=== PATIENT | female | born 1970 | race Caucasian/White ===

== ENCOUNTER 2016-06-04 07:39 | Emergency (ER) ==
[2016-06-04] MEDS ORDERED: ASPIRIN PO STA (07:43)
[2016-06-04] MEDS ORDERED: NITROGLYCERIN SL PRN (07:43)
[2016-06-04 08:10] LABS: MANUAL DIFF NEEDED? NO
[2016-06-04 08:19] LABS: BASO% 0.3 % (0.0-0.8); EOS# 0.04 X1000 (0.0-0.7); EOS% 0.7 % (0.0-10.0); HEMATOCRIT 35.9 % (37.0-47.0); HEMOGLOBIN 11.3 g/dL (12.0-16.0); LYMPH# 1.14 X1000 (1.2-3.4); LYMPH% 18.8 % (20.5-51.1); MCH 26.3 PG (27-31); MCHC 31.5 g/dL (33-37); MCV 83.5 FL (81-99); MONO# 0.56 X1000 (0.11-0.59); MONO% 9.3 % (1.7-9.3); MPV 10.3 FL (7.4-10.4); NEUT% 70.9 % (42.2-75.2); PLT 234 X1000 (130-400)
[2016-06-04 08:35] LABS: CALCIUM 9.6 mg/dL (8.8-10.2); MAGNESIUM 2.1 mg/dL (1.5-2.7); POTASSIUM 4.4 mmol/L (3.5-5.1); TOTAL BILIRUBIN 0.31 mg/dL (0.20-1.00); TOTAL PROTEIN 7.4 g/dL (6.3-8.3)
[2016-06-04] MEDS ORDERED: NS 1,000 ML IV ONE (08:37)
[2016-06-04] MEDS ORDERED: ZOFRAN IV ONE (08:37)
[2016-06-04] MEDS ORDERED: MORPHINE IV ONE (08:37)
[2016-06-04 09:01] LABS: INR 0.97; PROTIME 9.9 Seconds (9.2-11.7); PTT 24.7 Seconds (22.0-36.0)
--- NOTE | 2016-06-04 09:11 | PROVIDER DOCUMENTATION ---
HPI-Chest Pain <Janiya Villafuerte X - Last Filed: 06/04/16 09:37> - General Source: patient - History of Present Illness-CP Location: reports: other (bilateral chest) Chest Pain Radiation: reports: back, epigastric Quality of Pain: reports: aching Severity in ED: moderate Onset/Duration: 2 days ago Timing: still present Nitro Today/Relief: no nitro taken today Aspirin Treatment Today: 325 mg x 1, provided by ED Similar Symptoms Previously?: Yes Recently Seen Here or By Another Healthcare Provider: No <Ginny Carlson - Last Filed: 06/04/16 10:45> - General Chief Complaint: Chest Pain Stated Complaint: CPVOMITING,NAUSEA,LEFT ARM,NECK PAIN Time Seen by Provider: 06/04/16 07:50 Allergies/Adverse Reactions: Patient Allergies Allergy/AdvReac Type Severity Reaction Status Date / Time baclofen Allergy SHORTNESS Verified 06/04/16 07:53 OF BREATH Fish Containing Products Allergy Unknown Verified 06/04/16 07:53 ketorolac tromethamine * Allergy SHORTNESS Verified 06/04/16 07:53 [From Toradol] OF BREATH rofecoxib [From Vioxx] Allergy SHORTNESS Verified 06/04/16 07:53 OF BREATH Home Medications: Home Medication List Medication Instructions Recorded Confirmed Last Taken Type ATORVAstatin [Lipitor] 10 mg PO QHS 01/15/16 04/15/16 04/14/16 18:00 History Allopurinol [Zyloprim] 300 mg PO DAILY 01/15/16 04/15/16 04/15/16 06:30 History Amlodipine Besylate [Norvasc] 10 mg PO DAILY 01/15/16 04/15/16 04/15/16 06:30 History Aspirin [Low Dose Aspirin EC] 81 mg PO DAILY 01/15/16 04/15/16 04/15/16 06:30 History Gabapentin [Neurontin] 300 mg PO TID 01/15/16 04/15/16 04/15/16 06:30 History Hydralazine [Apresoline] 50 mg PO BID 01/15/16 04/15/16 04/15/16 06:30 History Levothyroxine [Synthroid] 175 microgm PO DAILY 01/15/16 04/15/16 04/15/16 06:30 History Paroxetine [Paxil] 20 mg PO DAILY 01/15/16 04/15/16 04/15/16 06:30 History Prazosin [Minipress] 1 mg PO QHS 01/15/16 04/15/16 04/15/16 06:30 History Metoprolol Succinate E.r. [Toprol 50 mg PO DAILY #30 tablet 01/19/16 04/15/16 06:30 Rx Xl] Pantoprazole [Protonix] 40 mg PO BID@0700,1900 #60 tablet 01/19/16 04/15/16 06:30 Rx Sennosides/Docusate Sodium 2 each PO BID #60 tablet 01/19/16 04/15/16 04/15/16 06:30 Rx [Pericolace] Sucralfate [Carafate] 1 gm PO BID #120 tablet 01/19/16 04/15/16 04/15/16 06:30 Rx Famotidine [Pepcid] 20 mg PO DAILY #20 tablet 04/12/16 04/15/16 04/15/16 06:30 Rx Ibuprofen [Motrin] 800 mg PO Q8H PRN PRN #20 tablet 04/12/16 04/15/16 Unknown Rx Benzonatate [Tessalon Perle] 100 mg PO TID PRN #30 capsule 04/15/16 Unknown Rx Cefdinir 300 mg PO BID #14 capsule 04/15/16 Unknown Rx - History of Present Illness-CP Nature of Presenting Problem: Presents to er with cc of bilateral chest pain radiating into the back and epigastric area x2 days ago. pt reports she goes to a pain clinic for chronic pain and has ran out of her pain medications 3 days ago. Pt has had a cardiac stent placed 1 year ago. (Ginny Carlson) Review of Systems - Adult - REVIEW OF SYSTEMS - ADULT Constitutional: denies: chills, fever, fatique Eyes: reports: no symptoms reported Ears, Nose, Mouth & Throat: reports: no symptoms reported Cardiovascular: reports: chest pain. denies: irregular heart rate, orthopnea, syncope Respiratory: denies: cough, shortness of breath, wheezing Gastrointestinal: denies: abdominal pain, diarrhea, nausea, vomiting Genitourinary: reports: no symptoms reported Musculoskeletal: reports: no symptoms reported Integumentary: reports: no symptoms reported Neurological: reports: no symptoms reported Psychiatric: reports: no symptoms reported Endocrine: reports: no symptoms reported Hematologic/Lymphatic: reports: no symptoms reported Allergic/Immunologic: reports: no symptoms reported All Other Systems: Reviewed and Negative <Ginny Carlson - Last Filed: 06/04/16 10:45> Past History - Adult - PAST MEDICAL HISTORY-ADULT Review of Records: reports: Nursing Assessment Review, Medications Reviewed Major Childhood Illnesses: reports: denies history Cardiovascular: reports: CAD (has stent), HTN Respiratory: reports: asthma Gastrointestinal: reports: other (esophagitis) Obstetrical/Gynecological: reports: denies history Genitourinary: reports: denies history Musculoskeletal: reports: arthritis Neurological: reports: headaches/migraines Endocrine/Immune: reports: Diabetes Other Conditions: reports: denies history - PRIOR SURGERIES/PROCEDURES Surgical/Procedure History: reports: appendectomy, hysterectomy, - IMMUNIZATION STATUS Childhood Immunizations: See Nurse Assessment Flu Vaccine: See Nurse Assessment - FAMILY HISTORY Family History: reviewed, not pertinent - SOCIAL HISTORY Smoking: denies Substance Use: none/never <Ginny Carlson - Last Filed: 06/04/16 10:45> Physical Exam-General - PHYSICAL EXAM-ADULT Initial Vital Signs Reviewed: Yes - CONSTITUTIONAL General Appearance: appears well, alert, no apparent distress - EYES Eyes: PERRL/EOMI - HEAD, EARS, NOSE, MOUTH & THROAT HENMT: moist mucous membranes, normal ENT inspection, TMs normal, pharynx normal - NECK Neck: non-tender, full range of motion, supple, normal inspection - RESPIRATORY Respiratory: chest non-tender, lungs clear, normal breath sounds, no pleuratic chest pain, no respiratory distress, no accessory muscle use - CARDIOVASCULAR Cardiovascular: regular rate, rhythm - GASTROINTESTINAL (ABDOMEN) Abdominal Exam: normal bowel sounds, soft, no organomegaly, no pulsatile mass, tenderness (ttp epigastric) - MUSCULOSKELETAL Extremity: normal range of motion, non-tender - SKIN Integumentary: normal color, normal turgor, warm/dry - NEUROLOGIC Neurologic: grossly normal - PSYCHIATRIC Psych/Mental Status: normal mood/affect, normal thought content, normal thought process, oriented x 3 <Ginny Carlson - Last Filed: 06/04/16 10:45> Progress - EKG 1 Comments: T wave inversations - no change compared to old EKG <Janiya Villafuerte - Last Filed: 06/04/16 09:37> - EKG 1 Time of EKG reading by physician:: 07:47 EKG Read and Signed by:: Janiya Villafuerte EKG Interpretation (*Must complete 3 of following elements*): Abnormal (ST and T wave abnormality consider inferior ischemia; ST and T wave abnormality consider anterolateral ischemia) Rate: 79 Rhythm: nsr [place]: normal QRS: normal 2 Time of EKG reading by physician:: 09:51 EKG Read and Signed by:: Janiya Villafuerte EKG Interpretation (*Must complete 3 of following elements*): Abnormal (ST and T wave abnormality consider inferior ischemia; ST and T wave abnormality consider anterior ischemia) Rate: 53 Rhythm: sinus jessica [place]: normal QRS: normal Prior EKG Comparison: unchanged from prior - XRAY 1 XRAY: Bilateral XRAY Study: Chest Impression: Normal XRAY Interpretation: nad - ULTRASOUND (By Radiology) 1 US Study: Abdomen Impression: Abnormal (hepatic steatosis. right renal atrophy and probable chronic pyelonephritis or vascular disease. The appearance of right kidney has not changed since 01/18/16) <Ginny Carlson - Last Filed: 06/04/16 10:45> - PLAN OF CARE/RESULTS Progress/Plan/Lab Results: Orders Category Date Time Status Cardiac Monitoring DIRECTED Care 06/04/16 07:43 Active Saline Loc NOW Care 06/04/16 07:43 Active CHEST-2 VIEWS [RAD] Stat Exams 06/04/16 07:43 Taken US GB < RUQ (LIMITED) [US] Stat Exams 06/04/16 08:36 Ordered AMYLASE [CHEM] Stat Lab 06/04/16 07:52 Received CBC WITH ELECTRONIC DIFF [HEME] Stat Lab 06/04/16 07:52 Completed CK PROFILE [SP CHEM] Stat Lab 06/04/16 07:52 Completed COMPREHENSIVE METABOLIC PANEL [CHEM] Stat Lab 06/04/16 07:52 Completed D-DIMER [CHEM] Stat Lab 06/04/16 07:52 Completed LIPASE [CHEM] Stat Lab 06/04/16 07:52 Received MAGNESIUM [CHEM] Stat Lab 06/04/16 07:52 Completed PRO B-NATRIURETIC PEPTIDE Stat Lab 06/04/16 07:52 Completed PROTIME WITH INR [COAG] Stat Lab 06/04/16 07:52 Completed PTT [COAG] Stat Lab 06/04/16 07:52 Completed TROPONIN T Stat Lab 06/04/16 07:52 Completed 0.9% Sodium Chloride Inj [Ns] 1,000 ml Med 06/04/16 08:37 Active IV 999 mls/hr Aspirin Med 06/04/16 07:43 Discontinued 325 mg PO STAT STA Morphine Med 06/04/16 08:37 Discontinued 4 mg IV NOW ONE Nitroglycerin Sl [Nitroglycerin] Med 06/04/16 07:43 Active 0.4 mg SL Q5M PRN PRN Ondansetron [Zofran] Med 06/04/16 08:37 Discontinued 4 mg IV NOW ONE EKG [EKG] Stat Ther 06/04/16 07:43 Ordered Vital Signs - 24 hr 06/04/16 07:44 Temperature 97.9 F Pulse Rate 88 Respiratory 18 Rate Blood Pressure 153/114 O2 Sat by Pulse 98 Oximetry Laboratory Tests 06/04/16 06/04/16 06/04/16 07:52 07:52 07:52 WBC 6.05 RBC 4.30 Hgb 11.3 L Hct 35.9 L MCV 83.5 MCH 26.3 L MCHC 31.5 L RDW Std Deviation 14.4 Plt Count 234 MPV 10.3 Immature Gran % (Auto) 0.0 Neut % (Auto) 70.9 Lymph % (Auto) 18.8 L [place] % (Auto) 9.3 Eos % (Auto) 0.7 Baso % (Auto) 0.3 Immature Gran # (Auto) 0.00 Neut # (Auto) 4.29 Lymph # (Auto) 1.14 L [place] # (Auto) 0.56 Eos # (Auto) 0.04 Baso # (Auto) 0.02 PT INR PTT (Actin FS) D-Dimer 0.31 Sodium 140 Potassium 4.4 Chloride 103 Carbon Dioxide 21 L Anion Gap 16 BUN 21 Creatinine 1.3 H Estimated GFR/1.73 m2 45 BUN/Creatinine Ratio 16 Glucose 122 H Calculated Osmolality 284 Calcium 9.6 Magnesium 2.1 Total Bilirubin 0.31 AST 15 ALT 13 Alkaline Phosphatase 82 Creatine Kinase 44 Troponin T Xft-E-Pfginlpzkic Pept Total Protein 7.4 Albumin 4.0 Globulin 3.4 Albumin/Globulin Ratio 1.2 06/04/16 06/04/16 06/04/16 07:52 07:52 07:52 WBC RBC Hgb Hct MCV MCH MCHC RDW Std Deviation Plt Count MPV Immature Gran % (Auto) Neut % (Auto) Lymph % (Auto) [place] % (Auto) Eos % (Auto) Baso % (Auto) Immature Gran # (Auto) Neut # (Auto) Lymph # (Auto) [place] # (Auto) Eos # (Auto) Baso # (Auto) PT 9.9 INR 0.97 PTT (Actin FS) 24.7 D-Dimer Sodium Potassium Chloride Carbon Dioxide Anion Gap BUN Creatinine Estimated GFR/1.73 m2 BUN/Creatinine Ratio Glucose Calculated Osmolality Calcium Magnesium Total Bilirubin AST ALT Alkaline Phosphatase Creatine Kinase Troponin T < 0.010 Gie-W-Htrotumtbpc Pept 819 H Total Protein Albumin Globulin Albumin/Globulin Ratio Laboratory Tests 06/04/16 06/04/16 06/04/16 07:52 07:52 07:52 WBC 6.05 RBC 4.30 Hgb 11.3 L Hct 35.9 L MCV 83.5 MCH 26.3 L MCHC 31.5 L RDW Std Deviation 14.4 Plt Count 234 MPV 10.3 Immature Gran % (Auto) 0.0 Neut % (Auto) 70.9 Lymph % (Auto) 18.8 L [place] % (Auto) 9.3 Eos % (Auto) 0.7 Baso % (Auto) 0.3 Immature Gran # (Auto) 0.00 Neut # (Auto) 4.29 Lymph # (Auto) 1.14 L [place] # (Auto) 0.56 Eos # (Auto) 0.04 Baso # (Auto) 0.02 PT INR PTT (Actin FS) D-Dimer 0.31 Sodium 140 Potassium 4.4 Chloride 103 Carbon Dioxide 21 L Anion Gap 16 BUN 21 Creatinine 1.3 H Estimated GFR/1.73 m2 45 BUN/Creatinine Ratio 16 Glucose 122 H Calculated Osmolality 284 Calcium 9.6 Magnesium 2.1 Total Bilirubin 0.31 AST 15 ALT 13 Alkaline Phosphatase 82 Creatine Kinase 44 Troponin T Ebo-V-Zcffcpcgbuw Pept Total Protein 7.4 Albumin 4.0 Globulin 3.4 Albumin/Globulin Ratio 1.2 Amylase Lipase 06/04/16 06/04/16 06/04/16 07:52 07:52 07:52 WBC RBC Hgb Hct MCV MCH MCHC RDW Std Deviation Plt Count MPV Immature Gran % (Auto) Neut % (Auto) Lymph % (Auto) [place] % (Auto) Eos % (Auto) Baso % (Auto) Immature Gran # (Auto) Neut # (Auto) Lymph # (Auto) [place] # (Auto) Eos # (Auto) Baso # (Auto) PT 9.9 INR 0.97 PTT (Actin FS) 24.7 D-Dimer Sodium Potassium Chloride Carbon Dioxide Anion Gap BUN Creatinine Estimated GFR/1.73 m2 BUN/Creatinine Ratio Glucose Calculated Osmolality Calcium Magnesium Total Bilirubin AST ALT Alkaline Phosphatase Creatine Kinase Troponin T < 0.010 Xnv-W-Dmtmbohgtiu Pept 819 H Total Protein Albumin Globulin Albumin/Globulin Ratio Amylase Lipase 06/04/16 06/04/16 06/04/16 07:52 09:54 09:54 WBC RBC Hgb Hct MCV MCH MCHC RDW Std Deviation Plt Count MPV Immature Gran % (Auto) Neut % (Auto) Lymph % (Auto) [place] % (Auto) Eos % (Auto) Baso % (Auto) Immature Gran # (Auto) Neut # (Auto) Lymph # (Auto) [place] # (Auto) Eos # (Auto) Baso # (Auto) PT INR PTT (Actin FS) D-Dimer Sodium Potassium Chloride Carbon Dioxide Anion Gap BUN Creatinine Estimated GFR/1.73 m2 BUN/Creatinine Ratio Glucose Calculated Osmolality Calcium Magnesium Total Bilirubin AST ALT Alkaline Phosphatase Creatine Kinase 48 Troponin T < 0.010 Dzf-S-Npxoevppxlm Pept Total Protein Albumin Globulin Albumin/Globulin Ratio Amylase 51 Lipase 28 (Ginny Carlson) Departure <Janiya Villafuerte X - Last Filed: 06/04/16 09:37> - Departure Time of Disposition Order: 10:44 Certified Medical Emergency: Emergent <Ginny Carlson - Last Filed: 06/04/16 10:45> - Departure DIAGNOSIS: Chest pain Qualifiers: Chest pain type: unspecified Qualified Code(s): R07.9 - Chest pain, unspecified Disposition: HOME 01 Condition: Stable Additional Instructions: Follow up with pcp and labor union business representative ED Follow Up Instructions: You have been treated by a care provider in the Emergency Department. These instructions are being provided to you so you can have an understanding of how to care for yourself upon discharge. Upon discharge from the Emergency Department, you are responsible for making arrangements for follow-up care by a physician of your choice. Take all prescribed medications as directed. Return to the Emergency Department immediately for any new or worsening symptoms. You may call the Physician Referral phone number at [phone] to obtain a list of Physicians who are taking new patients. Referrals: Albertina Husain CRNP [Primary Care Provider] - Lucius Mack MD [STAFF PHYSICIAN] - Attestation - Scribe Verification/Attestation Scribe:: Ginny Carlson Acting as Scribe for:: Janiya Villafuerte Scribe documention review:: This chart was documented by a scribe and accurately reflects the service the provider performed and the decisions made by the provider. <Ginny Carlson - Last Filed: 06/04/16 10:45> Physician Attestation - Physician Attestation I, the provider, attest to the following statement:: Janiya Villafuerte Physician documentation Attestation:: This documentation recorded by the scribe accurately reflects the service I personally performed and the decisions made by me. <Ginny Carlson - Last Filed: 06/04/16 10:45>
[2016-06-04 09:15] LABS: AMYLASE 51 U/L (20-200); LIPASE 28 U/L (13-60)
--- NOTE | 2016-06-04 09:28 | Diag Imaging Result Document ---
PROCEDURE NAME: CHEST-2 VIEWS - 06/04/2016 TWO VIEWS OF THE CHEST: FINDINGS: The appearance of the chest has not changed significantly since 01/15/2016. IMPRESSION: No acute disease.
--- NOTE | 2016-06-04 10:15 | Diag Imaging Result Document ---
PROCEDURE NAME: US GB < RUQ (LIMITED) - 06/04/2016 RIGHT UPPER QUADRANT ULTRASOUND: FINDINGS: The visualized portions of the pancreas aorta and inferior vena cava are within normal limits. There is no evidence of biliary dilatation, the common bile duct measuring 4 mm. The liver is hyperechoic. The right kidney is somewhat atrophic in appearance with areas of cortical scarring. It measures 8.6 x 4.7 x 4.5 cm. There is no evidence of hydronephrosis, masses or stones. The gallbladder is clear and nontender. There is antegrade flow in the portal vein. IMPRESSION: Hepatic steatosis. Right renal atrophy and probable chronic pyelonephritis or vascular disease. The appearance of the right kidney has not changed since 01/18/2016.
[2016-06-04 10:26] VITALS: BP 169/97
--- NOTE | 2016-06-04 12:19 | EKG Report ---
Test Performed on : 06/04/2016 07:47:25 AM Test Reason : CP Blood Pressure : / mmHG Vent. Rate : 079 BPM Atrial Rate : 079 BPM P-R Int : 112 ms QRS Dur : 094 ms QT Int : 400 ms P-R-T Axes : -03 023 -50 degrees QTc Int : 458 ms Normal sinus rhythm. ST & T wave abnormality, consider inferior ischemia ST & T wave abnormality, consider anterolateral ischemia Abnormal ECG When compared with ECG of 09-MAR-2016 16:29, No significant change was found Unconfirmed Result
--- NOTE | 2016-06-05 05:39 | EKG Report ---
Test Performed on : 06/04/2016 09:51:15 AM Test Reason : NO Order in i-drive Blood Pressure : / mmHG Vent. Rate : 053 BPM Atrial Rate : 053 BPM P-R Int : 118 ms QRS Dur : 098 ms QT Int : 482 ms P-R-T Axes : -02 043 -48 degrees QTc Int : [address] & T wave abnormality, consider inferior ischemia ST & T wave abnormality, consider anterior ischemia Abnormal ECG When compared with ECG of 04-JUN-2016 07:47, (Unconfirmed) Vent. rate has decreased BY 26 BPM Unconfirmed Result
== END 2016-06-04 11:45 | disposition home or self-care (01) ==
LOC: ED 07:39
DX: R07.89 Other chest pain (principal); R94.31 Abnormal electrocardiogram [ECG] [EKG]; M54.9 Dorsalgia, unspecified; R10.13 Epigastric pain; R11.2 Nausea with vomiting, unspecified; M79.602 Pain in left arm; M54.2 Cervicalgia; R10.816 Epigastric abdominal tenderness; G89.29 Other chronic pain; I25.10 Atherosclerotic heart disease of native coronary artery without angina pectoris; I10 Essential (primary) hypertension; M19.90 Unspecified osteoarthritis, unspecified site; E11.9 Type 2 diabetes mellitus without complications; Z79.82 Long term (current) use of aspirin; Z79.899 Other long term (current) drug therapy; Z95.5 Presence of coronary angioplasty implant and graft
CPT/HCPCS: 71020; 76705; 80053; 82150; 82550; 83690; 83735; 83880; 84484; 85025; 85379; 85610; 85730; 93005; J2270; J2405; J7030

== ENCOUNTER 2016-06-09 11:57 | Emergency (ER) ==
[2016-06-09 12:25] VITALS: BP 195/116
--- NOTE | 2016-06-09 12:53 | PROVIDER DOCUMENTATION ---
HPI-Abdominal Pain/GI Problem - General Chief Complaint: Return/Recheck Stated Complaint: ABD PAIN Time Seen by Provider: 06/09/16 12:41 Source: patient Allergies/Adverse Reactions: Patient Allergies Allergy/AdvReac Type Severity Reaction Status Date / Time baclofen Allergy SHORTNESS Verified 06/04/16 07:53 OF BREATH Fish Containing Products Allergy Unknown Verified 06/04/16 07:53 ketorolac tromethamine * Allergy SHORTNESS Verified 06/04/16 07:53 [From Toradol] OF BREATH rofecoxib [From Vioxx] Allergy SHORTNESS Verified 06/04/16 07:53 OF BREATH Home Medications: Home Medication List Medication Instructions Recorded Confirmed Last Taken Type ATORVAstatin [Lipitor] 10 mg PO QHS 01/15/16 04/15/16 04/14/16 18:00 History Allopurinol [Zyloprim] 300 mg PO DAILY 01/15/16 04/15/16 04/15/16 06:30 History Amlodipine Besylate [Norvasc] 10 mg PO DAILY 01/15/16 04/15/16 04/15/16 06:30 History Aspirin [Low Dose Aspirin EC] 81 mg PO DAILY 01/15/16 04/15/16 04/15/16 06:30 History Gabapentin [Neurontin] 300 mg PO TID 01/15/16 04/15/16 04/15/16 06:30 History Hydralazine [Apresoline] 50 mg PO BID 01/15/16 04/15/16 04/15/16 06:30 History Levothyroxine [Synthroid] 175 microgm PO DAILY 01/15/16 04/15/16 04/15/16 06:30 History Paroxetine [Paxil] 20 mg PO DAILY 01/15/16 04/15/16 04/15/16 06:30 History Prazosin [Minipress] 1 mg PO QHS 01/15/16 04/15/16 04/15/16 06:30 History Metoprolol Succinate E.r. [Toprol 50 mg PO DAILY #30 tablet 01/19/16 04/15/16 06:30 Rx Xl] Pantoprazole [Protonix] 40 mg PO BID@0700,1900 #60 tablet 01/19/16 04/15/16 06:30 Rx Sennosides/Docusate Sodium 2 each PO BID #60 tablet 01/19/16 04/15/16 04/15/16 06:30 Rx [Pericolace] Sucralfate [Carafate] 1 gm PO BID #120 tablet 01/19/16 04/15/16 04/15/16 06:30 Rx Famotidine [Pepcid] 20 mg PO DAILY #20 tablet 04/12/16 04/15/16 04/15/16 06:30 Rx Ibuprofen [Motrin] 800 mg PO Q8H PRN PRN #20 tablet 04/12/16 04/15/16 Unknown Rx Benzonatate [Tessalon Perle] 100 mg PO TID PRN #30 capsule 04/15/16 Unknown Rx Cefdinir 300 mg PO BID #14 capsule 04/15/16 Unknown Rx Hydrocodone/APAP 5 mg/325 mg 1 each PO Q8H PRN PRN #10 tablet 06/04/16 Unknown Rx [[place]-5] - History of Present Illness-ABD Nature of Presenting Problems: Pt is 45 y/o F presents to the ED with abdominal pain. Pt states being seen at [facility] on the . Pt states pain has worsened. Pt denies N/V/D. Abdominal Pain Onset Location: reports: suprapubic Pain Radiation: reports: RLQ Quality of Pain: reports: aching Severity in ED: reports: mild Onset/Duration: reports: 5 days ago Timing: reports: still present, getting worse Activities at Onset: reports: light activity Exposure to sick contacts?: No Modifying Factors: improves with: nothing Associated Symptoms: reports: denies symptoms Last BM: unsure Dark Stools Present?: reports: none noticed Rectal Bleeding: reports: none Rectal Pain: reports: none Emesis Description: reports: none Bruising or Bleeding Gums?: No Similar Symptoms Previously?: Yes Recently seen or treated by another doctor?: No Review of Systems - Adult - REVIEW OF SYSTEMS - ADULT Constitutional: denies: chills, fever Eyes: denies: blurred vision, double vision Ears, Nose, Mouth & Throat: denies: ear pain, nose pain, throat pain Cardiovascular: denies: chest pain, heart murmur, irregular heart rate Respiratory: denies: cough, shortness of breath, wheezing Gastrointestinal: reports: abdominal pain. denies: diarrhea, nausea, vomiting Genitourinary: denies: dysuria, hematuria Musculoskeletal: denies: bone pain, joint pain, neck pain Integumentary: denies: hives, itching, rash Neurological: denies: dizziness/vertigo, headache/migraines Psychiatric: reports: no symptoms reported Endocrine: reports: no symptoms reported Hematologic/Lymphatic: reports: no symptoms reported Allergic/Immunologic: reports: no symptoms reported All Other Systems: Reviewed and Negative Past History - Adult - PAST MEDICAL HISTORY-ADULT Review of Records: reports: Nursing Assessment Review, Medications Reviewed, Social history reviewed & non-contributory. Major Childhood Illnesses: reports: denies history Cardiovascular: reports: CAD (has stent), CHF, HTN, hyperlipidemia Respiratory: reports: asthma Gastrointestinal: reports: other (esophagitis) Obstetrical/Gynecological: reports: uterine/ovarian cancer Genitourinary: reports: kidney disease Musculoskeletal: reports: arthritis, chronic pain Neurological: reports: headaches/migraines, Seizures/Epilepsy Endocrine/Immune: reports: Diabetes Other Conditions: reports: denies history - PRIOR SURGERIES/PROCEDURES Surgical/Procedure History: reports: appendectomy, cardiac stent, hysterectomy, , back/neck (back ) - IMMUNIZATION STATUS Childhood Immunizations: See Nurse Assessment Flu Vaccine: See Nurse Assessment - FAMILY HISTORY Family History: reviewed, not pertinent - SOCIAL HISTORY Smoking: denies Substance Use: denies Living Situation: family Physical Exam-General - PHYSICAL EXAM-ADULT Initial Vital Signs Reviewed: Yes - CONSTITUTIONAL General Appearance: appears well, alert, no apparent distress - EYES Eyes: PERRL/EOMI, pink conjunctivae, fundi clear, no AV nicking - HEAD, EARS, NOSE, MOUTH & THROAT HENMT: normocephalic/atraumatic, moist mucous membranes, normal ENT inspection, TMs normal, pharynx normal - NECK Neck: non-tender, full range of motion, supple, normal inspection - RESPIRATORY Respiratory: chest non-tender, lungs clear, normal breath sounds, no pleuratic chest pain, no respiratory distress, no accessory muscle use - CARDIOVASCULAR Cardiovascular: normal peripheral pulses, regular rate, rhythm, no edema, no gallop, no JVD, no murmur - GASTROINTESTINAL (ABDOMEN) Abdominal Exam: normal bowel sounds, soft, no organomegaly, no pulsatile mass, guarding, tenderness (suprapubic) - LYMPHATIC Lymphatic: no adenopathy - MUSCULOSKELETAL Back Exam: normal inspection, no CVA tenderness, no vertebral tenderness Extremity: normal range of motion, non-tender, normal gait, normal inspection, no pedal edema, no calf tenderness, normal capillary refill, pelvis stable - SKIN Integumentary: normal color, normal turgor, warm/dry - NEUROLOGIC Neurologic: grossly normal - PSYCHIATRIC Psych/Mental Status: normal mood/affect, oriented x 3 Progress - PLAN OF CARE/RESULTS Progress/Plan/Lab Results: Vital Signs - 24 hr 06/09/16 12:21 Pulse Rate 86 Respiratory 18 Rate Blood Pressure 195/116 Laboratory Tests 06/09/16 06/09/16 06/09/16 13:00 13:00 13:10 WBC 7.33 RBC 4.51 Hgb 12.0 Hct 37.6 MCV 83.4 MCH 26.6 L MCHC 31.9 L RDW Std Deviation 14.5 Plt Count 259 MPV 10.2 Immature Gran % (Auto) 0.1 Neut % (Auto) 71.9 Lymph % (Auto) 17.9 L Dyer % (Auto) 8.3 Eos % (Auto) 1.4 Baso % (Auto) 0.4 Immature Gran # (Auto) 0.01 Neut # (Auto) 5.27 Lymph # (Auto) 1.31 Dyer # (Auto) 0.61 H Eos # (Auto) 0.10 Baso # (Auto) 0.03 Sodium 137 Potassium 4.5 Chloride 104 Carbon Dioxide 20 L Anion Gap 13 BUN 19 Creatinine 1.3 H Estimated GFR/1.73 m2 45 BUN/Creatinine Ratio 15 Glucose 109 H Calculated Osmolality 277 Calcium 9.3 Total Bilirubin 0.20 AST 21 ALT 16 Alkaline Phosphatase 78 Total Protein 7.5 Albumin 4.2 Globulin 3.0 Albumin/Globulin Ratio 1.0 Urine Source CLEAN CATCH Urine Color YELLOW Urine Clarity CLEAR Urine pH 6.0 Ur Specific Reader 1.015 Urine Protein TRACE A Urine Ketones NEGATIVE Urine Blood NEGATIVE Urine Nitrite NEGATIVE Urine Bilirubin NEGATIVE Urine Urobilinogen NORMAL Urine Microscopic RBC Not Reportable Urine WBC TRACE A Urine Microscopic WBC <10 Ur Epithelial Cells >10 A Urine Yeast NONE SEEN Urine Glucose NEGATIVE Orders Category Date Time Status ABDOMEN/PELVIS W/CONTRAST [CT] Stat Exams 06/09/16 12:53 Taken CBC WITH ELECTRONIC DIFF [HEME] Stat Lab 06/09/16 13:00 Completed CMP [COMPREHENSIVE METABOLIC PANEL] [CHEM] Stat Lab 06/09/16 13:[address] W/POSS RFLX CULT [URINALYSIS] Stat Lab 06/09/16 13:10 Completed - CT/MRI 1 CT Study: Abdomen, Pelvis Impression: Normal CT Results: no acute disease Departure - Departure Time of Disposition Order: 15:13 DIAGNOSIS: Muscular abdominal pain in right lower quadrant Disposition: HOME 01 Certified Medical Emergency: Emergent Condition: Stable Additional Instructions: ED Follow Up Instructions: You have been treated by a care provider in the Emergency Department. These instructions are being provided to you so you can have an understanding of how to care for yourself upon discharge. Upon discharge from the Emergency Department, you are responsible for making arrangements for follow-up care by a physician of your choice. Take all prescribed medications as directed. Return to the Emergency Department immediately for any new or worsening symptoms. You may call the Physician Referral phone number at [phone] to obtain a list of Physicians who are taking new patients. Attestation - Scribe Verification/Attestation Scribe:: Carmita Vazquez Acting as Scribe for:: Jonas Hahn Scribe documention review:: This chart was documented by a scribe and accurately reflects the service the provider performed and the decisions made by the provider.
[2016-06-09 13:07] LABS: MANUAL DIFF NEEDED? NO
[2016-06-09 13:09] LABS: BASO% 0.4 % (0.0-0.8); EOS% 1.4 % (0.0-10.0); HEMATOCRIT 37.6 % (37.0-47.0); IMM GRAN# 0.01 X1000 (0.0-0.04); IMM GRAN% 0.1 % (0.0-0.5); LYMPH# 1.31 X1000 (1.2-3.4); LYMPH% 17.9 % (20.5-51.1); MCH 26.6 PG (27-31); MCHC 31.9 g/dL (33-37); MCV 83.4 FL (81-99); MONO# 0.61 X1000 (0.11-0.59); MONO% 8.3 % (1.7-9.3); MPV 10.2 FL (7.4-10.4); NEUT% 71.9 % (42.2-75.2); PLT 259 X1000 (130-400); RBC 4.51 XMIL (4.2-5.4)
[2016-06-09 13:20] LABS: URINE CULTURE PL NEEDED? NO; URINE SOURCE CLEAN CATCH
[2016-06-09 13:26] LABS: BILIRUBIN URINE NEGATIVE (NEGATIVE); BLOOD URINE NEGATIVE (NEGATIVE); CLARITY CLEAR (CLEAR); COLOR YELLOW; GLUCOSE URINE NEGATIVE (NEGATIVE); LEUKOCYTES URINE TRACE (NEGATIVE); NITRITE URINE NEGATIVE (NEGATIVE); PROTEIN URINE TRACE mg/dL (NEGATIVE); SP GRAVITY URINE 1.015; UROBILINOGEN URINE NORMAL
[2016-06-09 13:30] LABS: ALBUMIN 4.2 g/dL (3.5-5.0); CALCIUM 9.3 mg/dL (8.8-10.2); POTASSIUM 4.5 mmol/L (3.5-5.1); TOTAL BILIRUBIN 0.2 mg/dL (0.20-1.00); TOTAL PROTEIN 7.5 g/dL (6.3-8.3)
[2016-06-09 13:38] LABS: URINE EPITHELIAL CELLS >10 /HPF (<10); URINE WBC <10 /HPF (<10)
[2016-06-09] MEDS ORDERED: NS 1,000 ML IV ONE (14:14)
[2016-06-09] MEDS ORDERED: DILAUDID IV ONE (14:14)
--- NOTE | 2016-06-09 14:24 | Diag Imaging Result Document ---
PROCEDURE NAME: ABDOMEN/PELVIS W/CONTRAST - 06/09/2016 CT ABDOMEN PELVIS WITH INTRAVENOUS CONTRAST: A CT dose reduction protocol was used. COMPARISON: Renal ultrasound 01/18/2016, [id number] ultrasound 2016. FINDINGS: The lung bases are clear. Heart size is mildly enlarged. There is significant left renal atrophy. The left kidney measures 6.7 x 3.7 cm, which has atrophied since 01/18/2016. The liver, gallbladder, spleen, pancreas, and adrenals are normal. No bowel obstruction or inflammation. Uterus and ovaries are absent. Urinary bladder and rectum are normal. There is anterior and posterior fusion of the lower lumbar spine. There is significant degeneration of the sacroiliac joints. No acute bony lesions. IMPRESSION: 1. Progressive left renal atrophy. 2. No acute findings. [facility]
== END 2016-06-09 15:27 | disposition home or self-care (01) ==
LOC: P.ED 11:57
DX: R10.31 Right lower quadrant pain (principal); I25.10 Atherosclerotic heart disease of native coronary artery without angina pectoris; I10 Essential (primary) hypertension; E78.5 Hyperlipidemia, unspecified; Z95.5 Presence of coronary angioplasty implant and graft; M19.90 Unspecified osteoarthritis, unspecified site; G89.29 Other chronic pain; R51 Headache; R56.9 Unspecified convulsions; E11.9 Type 2 diabetes mellitus without complications; Z79.899 Other long term (current) drug therapy; Z79.82 Long term (current) use of aspirin
CPT/HCPCS: 74177; 80053; 81001; 85025; 96361; 96374; J1170; J7030; Q9967

== ENCOUNTER 2018-12-11 12:34 | Inpatient (IN) ==
[2018-12-11] MEDS ORDERED: DILAUDID IV ONE ×2 (12:56→16:32)
[2018-12-11] MEDS ORDERED: ZOFRAN IV ONE (12:57)
[2018-12-11] MEDS ORDERED: NS 1,000 ML IV ONE (12:59)
[2018-12-11 13:43] LABS: HEMATOCRIT 39.7 % (37.0-47.0); HEMOGLOBIN 12.7 g/dL (12.0-16.0); LYMPH% 15.4 % (20.5-51.1); MCH 27.1 PG (27-31); MCV 84.8 FL (81-99); MONO% 7.8 % (1.7-9.3); NEUT% 76.2 % (42.2-75.2); PLT 335 X1000 (130-400); RBC 4.68 XMIL (4.2-5.4); WBC 11.98 X1000 (4.8-10.8)
[2018-12-11 13:44] LABS: BASO# 0.02 X1000 (0.0-0.2); BASO% 0.2 % (0.0-0.8); EOS# 0.01 X1000 (0.0-0.7); EOS% 0.1 % (0.0-10.0); IMM GRAN# 0.03 X1000 (0.0-0.04); IMM GRAN% 0.3 % (0.0-0.5); LYMPH# 1.85 X1000 (1.2-3.4); MONO# 0.93 X1000 (0.11-0.59); NEUT# 9.14 X1000 (1.4-6.5)
--- NOTE | 2018-12-11 13:46 | PROVIDER DOCUMENTATION ---
This chart was entered by Belgica Leigh Scribe, acting as scribe for Rajiv Costa MD. HPI-General Adult - General Chief Complaint: Chest Pain Stated Complaint: ABD PAIN,FEVER,VOMITING,NEAR SYNCOPE Time Seen by Provider: 12/11/18 12:43 Source: patient Allergies/Adverse Reactions: Patient Allergies Allergy/AdvReac Type Severity Reaction Status Date / Time baclofen Allergy SHORTNESS Verified 12/11/18 14:03 OF BREATH Fish Containing Products Allergy Unknown Verified 12/11/18 14:03 ketorolac tromethamine * Allergy SHORTNESS Verified 12/11/18 14:03 [From Toradol] OF BREATH rofecoxib [From Vioxx] Allergy SHORTNESS Verified 12/11/18 14:03 OF BREATH Home Medications: Home Medication List Medication Instructions Recorded Confirmed Last Taken Type Aspirin [Low Dose Aspirin EC] 81 mg PO DAILY 01/15/16 12/11/18 11/25/18 History Gabapentin [Neurontin] 300 mg PO TID 01/15/16 12/11/18 11/25/18 History Pantoprazole [Protonix] 40 mg PO BID@0700,1900 #60 tablet 01/19/16 12/11/18 11/24/18 Rx Levothyroxine [Synthroid] 200 microgm PO DAILY@0700 #0 tablet 02/28/17 12/11/18 11/25/18 Rx Hydralazine [Apresoline] 50 mg PO TID #90 tab 11/04/17 12/11/18 11/25/18 Rx Polyethylene Glycol 3350 [Miralax] 17 gm PO BID PRN 12/21/17 12/11/18 Unknown History Allopurinol 100 mg PO BID #60 tab 10/19/18 12/11/18 11/25/18 Rx Clonidine HCl 0.1 mg PO TID 11/25/18 12/11/18 11/25/18 History Oxycodone/APAP 10 mg/325 mg 1 ea PO Q4H PRN PRN 11/25/18 12/11/18 11/25/18 History [Percocet-10] Quetiapine Fumarate 50 mg PO QHS 11/25/18 12/11/18 11/24/18 History - History of Present Illness -Gen Adult Nature of Presenting Problems: 48 y/o female presents to ED with intermittent, sharp chest pain, N/V, abdominal pain, fever, and chills onset 4 days ago. Pt hypertensive in triage. Pt states she has not taken her meds today because she cannot keep anything down. Pt is alert and oriented. Location of Pain/Injury: reports: chest, abdomen Pain Radiation: reports: no radiation Quality of Pain: reports: sharp Severity: reports: moderate Onset/Duration: reports: 4 days ago Timing: reports: still present, intermittent Context/Activities at Onset: reports: none Modifying Factors: worse with: palpation Associated Symptoms: reports: chest pain, fever/chills, nausea, vomiting, other (abdominal pain) Similar Symptoms Previously?: No Recently seen or treated by another doctor?: No Review of Systems - Adult - REVIEW OF SYSTEMS - ADULT Constitutional: reports: chills, fever Eyes: reports: no symptoms reported Ears, Nose, Mouth & Throat: reports: no symptoms reported Cardiovascular: reports: chest pain. denies: palpitations Respiratory: denies: cough, shortness of breath Gastrointestinal: reports: abdominal pain, nausea, vomiting. denies: diarrhea Genitourinary: reports: no symptoms reported Musculoskeletal: denies: back pain, joint pain Integumentary: reports: no symptoms reported Neurological: denies: dizziness/vertigo, seizure Psychiatric: reports: no symptoms reported Endocrine: reports: no symptoms reported Hematologic/Lymphatic: reports: no symptoms reported Allergic/Immunologic: reports: no symptoms reported All Other Systems: Reviewed and Negative Past History - Adult - PAST MEDICAL HISTORY-ADULT Review of Records: reports: Old Records Reviewed, Nursing Assessment Review, Medications Reviewed Major Childhood Illnesses: reports: denies history Cardiovascular: reports: CAD (has stent), CHF, HTN, hyperlipidemia, [place] Respiratory: reports: asthma Gastrointestinal: reports: GERD, other (esophagitis) Obstetrical/Gynecological: reports: uterine/ovarian cancer Genitourinary: reports: kidney disease Musculoskeletal: reports: arthritis, chronic pain, other (Gout) Neurological: reports: headaches/migraines, Seizures/Epilepsy Psychiatric: reports: anxiety, bipolar, depression, other (insomnia) Endocrine/Immune: reports: Diabetes, thyroid disorder Other Conditions: reports: denies history - PRIOR SURGERIES/PROCEDURES Surgical/Procedure History: reports: appendectomy, cardiac stent, hysterectomy, , orthopedic (extremity) (carpal tunnel), joint replacement (knee), back/neck (back ) - IMMUNIZATION STATUS Childhood Immunizations: See Nurse Assessment Flu Vaccine: See Nurse Assessment - FAMILY HISTORY Family History: reviewed, not pertinent - SOCIAL HISTORY Smoking: quit greater than 1 year Substance Use: none/never Alcohol Use Frequency: never Living Situation: family Physical Exam-General - PHYSICAL EXAM-ADULT Initial Vital Signs Reviewed: Yes (bp 204/146) - CONSTITUTIONAL General Appearance: appears well, alert, no apparent distress - EYES Eyes: PERRL/EOMI, pink conjunctivae - HEAD, EARS, NOSE, MOUTH & THROAT HENMT: normocephalic/atraumatic, moist mucous membranes, normal ENT inspection - NECK Neck: non-tender, full range of motion - RESPIRATORY Respiratory: lungs clear, normal breath sounds, other (chest wall tenderness) - CARDIOVASCULAR Cardiovascular: normal peripheral pulses, regular rate, rhythm - MUSCULOSKELETAL Back Exam: normal inspection, no CVA tenderness, no vertebral tenderness Extremity: normal range of motion, non-tender - SKIN Integumentary: normal color, warm/dry - NEUROLOGIC Neurologic: grossly normal - PSYCHIATRIC Psych/Mental Status: normal mood/affect, normal thought content, normal thought process, oriented x 3 Progress - PLAN OF CARE/RESULTS Progress/Plan/Lab Results: Vital Signs - 8 hr 12/11/18 12:37 Temperature 97.5 F L Pulse Rate 106 H Respiratory Rate 20 Blood Pressure 205/124 O2 Sat by Pulse Oximetry 100 HEART SCORE OF 4. Laboratory Tests 12/11/18 12/11/18 12/11/18 13:29 13:29 13:29 WBC 11.98 H RBC 4.68 Hgb 12.7 Hct 39.7 MCV 84.8 MCH 27.1 MCHC 32.0 L RDW Std Deviation 15.0 H Plt Count 335 MPV 10.0 Immature Gran % (Auto) 0.3 Neut % (Auto) 76.2 H Lymph % (Auto) 15.4 L Mccone % (Auto) 7.8 Eos % (Auto) 0.1 Baso % (Auto) 0.2 Immature Gran # (Auto) 0.03 Neut # (Auto) 9.14 H Lymph # (Auto) 1.85 Mccone # (Auto) 0.93 H Eos # (Auto) 0.01 Baso # (Auto) 0.02 Sodium 142 Potassium 4.3 Chloride 103 Carbon Dioxide 22 L Anion Gap 17 BUN 27 H Creatinine 1.7 H Estimated GFR/1.73 m2 32 BUN/Creatinine Ratio 16 Glucose 127 H Calculated Osmolality 290 Calcium 9.7 Magnesium 2.2 Total Bilirubin 0.38 AST 16 ALT 17 Alkaline Phosphatase 79 Troponin T < 0.010 Total Protein 8.2 Albumin 4.7 Globulin 3.5 Albumin/Globulin Ratio 1.3 Amylase 70 Lipase 85 H Urine Source Urine Color Urine Turbidity Urine pH Ur Specific Vinson Urine Protein Ur Glucose (Stick) Ur Ketones (Stick) Urine Blood Urine Nitrite Urine Bilirubin Urobilinogen Dipstick Urine Leukocytes Urine WBC (Auto) Urine RBC (Auto) U Epithel Cells (Auto) Urine Bacteria (Auto) 12/11/18 13:51 WBC RBC Hgb Hct MCV MCH MCHC RDW Std Deviation Plt Count MPV Immature Gran % (Auto) Neut % (Auto) Lymph % (Auto) Mccone % (Auto) Eos % (Auto) Baso % (Auto) Immature Gran # (Auto) Neut # (Auto) Lymph # (Auto) Mccone # (Auto) Eos # (Auto) Baso # (Auto) Sodium Potassium Chloride Carbon Dioxide Anion Gap BUN Creatinine Estimated GFR/1.73 m2 BUN/Creatinine Ratio Glucose Calculated Osmolality Calcium Magnesium Total Bilirubin AST ALT Alkaline Phosphatase Troponin T Total Protein Albumin Globulin Albumin/Globulin Ratio Amylase Lipase Urine Source CLEAN CATCH Urine Color YELLOW Urine Turbidity CLEAR Urine pH 8.0 Ur Specific Vinson 1.016 Urine Protein TRACE A Ur Glucose (Stick) NEGATIVE Ur Ketones (Stick) NEGATIVE Urine Blood NEGATIVE Urine Nitrite NEGATIVE Urine Bilirubin NEGATIVE Urobilinogen Dipstick NORMAL Urine Leukocytes NEGATIVE Urine WBC (Auto) <10 Urine RBC (Auto) <10 U Epithel Cells (Auto) <10 Urine Bacteria (Auto) NEGATIVE Result Diagrams: 12/11/18 13:29 12/11/18 13:29 - EKG 1 Time of EKG reading by physician:: 12:48 EKG Read and Signed by:: Rajiv Costa EKG Interpretation (*Must complete 3 of following elements*): Abnormal Rate: 98 Rhythm: NSR [place]: normal QRS: normal [place] Interval: normal ST Wave: non-specific ST changes (consider inferior/anterolateral ischemia) Prior EKG Comparison: changes noted (ST changes more prominent in lateral leads from 11/04/18. -Dr. Costa) - XRAY 1 XRAY Study: Chest Impression: See EMR Report ([facility] - [address], [address], [place] [address] [facility] - [address] , [place] [address] Department of Imaging Patient: MELISSA BENITEZ Date: 12/11/18MR#: [id number] : 1970ADM Status: REG ERAcct#: [id number] Age/Sex: 48/FRoom/Bed: Loc: ED Ordering Physician: Rajiv Costa MD Family Physician: None,PCP Reason for Procedure: fever, chest pain Signed EXAM: CHEST-1 VIEW INDICATION: fever, chest pain TECHNIQUE: One view COMPARISON: 11/04/2018 FINDINGS: The lungs are grossly clear. There is no discrete pleural fluid collection or pneumothorax. The cardiomediastinal silhouette and central vasculature are grossly unremarkable. IMPRESSION: No evidence of acute pathology by plain radiograph. Electronically signed by Wicho Heart 12/11/2018 2:15 PM 12/11/[id number] Interpreting Physician: Wicho Heart MD Dictated Date/Time: 12/11/18 1415 cc: Rajiv Costa MD; None,PCP) - CONSULTS/PCP/HOSPITALIST Notification #1 *Consult/PCP/Hospitalist*: BRY Farmer for hospitalist Time Discussed: 17:43 Consult Disposition: Admit Departure - Departure Date of Disposition Decision: 12/11/18 Time of Disposition Decision: 17:07 DIAGNOSIS: Hypertensive urgency Intractable vomiting Qualifiers: Vomiting type: unspecified Nausea presence: with nausea Qualified Code(s): R11.2 - Nausea with vomiting, unspecified Disposition: ADMITTED INPATIENT 09 Certified Medical Emergency: Emergent Condition: Stable Additional Freetext Instructions: ED Follow Up Instructions: You have been treated by a care provider in the Emergency Department. These instructions are being provided to you so you can have an understanding of how to care for yourself upon discharge. Upon discharge from the Emergency Department, you are responsible for making arrangements for follow-up care by a physician of your choice. Take all prescribed medications as directed. Return to the Emergency Department immediately for any new or worsening symptoms. You may call the Physician Referral phone number at [phone] to obtain a list of Physicians who are taking new patients. Referrals and Follow-Ups: None,PCP [Primary Care Provider] - - Critical Care Note This patient required my direct & personal management of CC.: No Attestation - Physician/ BERRY Attestation Patient care was provided by Advanced Practice Provider:: No The physician spent face to face time with patient:: Yes Advanced Practice Provider documentation review:: Supervising physician onsite and consulted in the evaluation and care of this patient. The physician did have a face to face encounter with the patient. This chart was documented by the indicated scribe, (Belgica Leigh, Catherine) and accurately reflects the services I performed and decisions made by me, Rajiv Costa MD, as attested by the provider's signature.
[2018-12-11 13:59] LABS: URINE SOURCE CLEAN CATCH
[2018-12-11 14:09] LABS: BILIRUBIN URINE NEGATIVE (NEGATIVE); BLOOD URINE NEGATIVE (NEGATIVE); COLOR YELLOW; GLUCOSE URINE NEGATIVE (NEGATIVE); KETONE URINE NEGATIVE (NEGATIVE); LEUKOCYTES URINE NEGATIVE (NEGATIVE); NITRITE URINE NEGATIVE (NEGATIVE); PROTEIN URINE TRACE mg/dL (NEGATIVE); SP GRAVITY URINE 1.016; TURBIDITY URINE CLEAR (CLEAR); UROBILINOGEN URINE NORMAL (NORMAL)
[2018-12-11 14:10] LABS: UR EPITHELIAL CELLS <10 /HPF (<10); URINE BACTERIA NEGATIVE /HPF; URINE RBC <10 /HPF (<10); URINE WBC <10 /HPF (<10)
--- NOTE | 2018-12-11 14:17 | Diag Imaging Result Doc PS360 ---
EXAM: CHEST-1 VIEW INDICATION: fever, chest pain TECHNIQUE: One view COMPARISON: 11/04/2018 FINDINGS: The lungs are grossly clear. There is no discrete pleural fluid collection or pneumothorax. The cardiomediastinal silhouette and central vasculature are grossly unremarkable. IMPRESSION: No evidence of acute pathology by plain radiograph. Electronically signed by Wicho Heart 12/11/2018 2:15 PM
[2018-12-11] MEDS ORDERED: LABETALOL IV ONE (14:18)
[2018-12-11] MEDS ORDERED: APRESOLINE IV ONE ×2 (14:18→16:34)
[2018-12-11 14:23] LABS: ALB/GLOB RATIO 1.3; ALBUMIN 4.7 g/dL (3.5-5.0); CALCIUM 9.7 mg/dL (8.8-10.2); CREATININE 1.7 mg/dL (0.5-0.9); MAGNESIUM 2.2 mg/dL (1.5-2.7); POTASSIUM 4.3 mmol/L (3.5-5.1); TOTAL BILIRUBIN 0.38 mg/dL (0.20-1.00); TOTAL PROTEIN 8.2 g/dL (6.3-8.3)
[2018-12-11] MEDS ORDERED: CATAPRES PO ONE (16:34)
[2018-12-11] MEDS ORDERED: NITROGLYCERIN SL PRN (19:15)
[2018-12-11] MEDS ORDERED: MIRALAX PO PRN (19:15)
[2018-12-11] MEDS: ZOFRAN IV PRN (20:12)
[2018-12-11] MEDS: CARDENE 20 MG/NS 20 MG/200 ML PIGGYBACK IV SCH (20:42)
[2018-12-11 20:54] LABS: CHOLESTEROL 314 mg/dL (0-200); HDL 73 mg/dL (45-65); LDL 217 mg/dL; TRIGLYCERIDES 119 mg/dL (35-135); VLDL 24 mg/dL
[2018-12-11] MEDS: LOVENOX SUBQ SCH (21:22)
[2018-12-11] MEDS: ZYLOPRIM PO SCH (21:36)
[2018-12-11] MEDS: SEROQUEL PO SCH (21:36)
[2018-12-11] MEDS: PRILOSEC PO SCH (21:36)
[2018-12-11] MEDS: PERCOCET-10 PO PRN (21:37)
--- NOTE | 2018-12-11 22:07 | HISTORY AND PHYSICAL ---
CHIEF COMPLAINT: Nausea, vomiting, fevers, chills, diaphoresis. HISTORY OF PRESENT ILLNESS: Ms. Mayer is a 48-year-old female. She comes to the ER today with complaints of nausea and vomiting, fever and chills. This started after she had a trigger point therapy surgery on 12/07/2018. She stated that she did call the surgeon that did the procedure. He stated that this is quite common after the procedure, and if it did not get any better, that he would see her. She stated it did get somewhat better after the 1st day; however, the next day it continued to persist. She has not been able to take any of her pain medications. She has not been able to hold down any of her blood pressure medications. The patient decided to come to the ER today because she is having pain all over and into her chest. While in the room, she is vomiting persistently. Her blood pressure on the monitor is 265/122. When looking at the records in the ER, she has had several medications in the ER including labetalol, hydralazine, and clonidine. However, her blood pressure has persisted to climb higher and higher after all 3 medications. The patient was given Dilaudid in the ER, and she is not complaining of any pain at this time; however, she still is still vomiting, and her blood pressure is still very high. The color of her vomit is a liquid brown. It does not appear to be bloody or black or tarry. The patient states that she does not have blood in her stools. The patient does state she has been feverish and diaphoretic. She has also had chills. She does not complain of anything with her urine. On laboratory findings, studies of the urine are negative. White blood cell count in the ER is slightly elevated at 11.98. The patient does have an elevated creatinine in the ER of 1.7. When I look back at the prior records, the patient has been having elevated creatinine levels, her last being 2.0 on 11/04/2018. PAST MEDICAL HISTORY: 1. Coronary artery disease. 2. Chronic back pain. 3. Type 2 diabetes. 4. Gout. 5. Hyperlipidemia. 6. Chronic kidney disease stage 3. 7. History of esophageal strictures. 8. Hypothyroidism. 9. Chronic anemia. 10. Gastroesophageal reflux disease. PAST SURGICAL HISTORY: 1. Two sections. 2. Two lower back surgeries. 3. Four carpal tunnel releases. 4. Coronary artery stent placement in 2016. 5. Esophagogastroduodenoscopy with esophageal dilation. 6. Appendectomy. 7. Hysterectomy. SOCIAL HISTORY: The patient denies any alcohol, tobacco, or illicit drug use. She is disabled for her back pain. She has 2 children. She lives with her in an apartment above the garage of her in-laws. FAMILY HISTORY: Her father is from cirrhosis of the liver and liver cancer. Mother is from cervical cancer. ALLERGIES: Baclofen, fish-containing products, Toradol and Vioxx. HOME MEDICATIONS: Neurontin 300 mg p.o. t.i.d., aspirin 81 mg p.o. daily, Protonix 40 mg p.o. b.i.d., Synthroid 200 mcg p.o. daily, hydralazine 50 mg p.o. t.i.d., MiraLAX 17 g p.o. b.i.d., allopurinol 100 mg p.o. b.i.d., Seroquel 50 mg p.o. at bedtime, clonidine 0.1 mg p.o. t.i.d., Percocet 10, 1 tablet p.o. every 4 hours p.r.n. LABS AND DIAGNOSTICS: Sodium 142, potassium 4.3, chloride 103, carbon dioxide 22, anion gap 17, BUN 27, creatinine 1.7, estimated GFR is 32, glucose 127, calcium 9.7, magnesium 2.2, AST 16, ALT 17, alkaline phosphatase 79. Troponin less than 0.01. Amylase 70, lipase 85. White blood cell count 11.98, hemoglobin 12.7, hematocrit 39.7. Urinalysis is negative. Chest x-ray shows no evidence of acute pathology. REVIEW OF SYSTEMS: A 10-point review of system has been obtained. All are negative except what is stated above in HPI. PHYSICAL EXAMINATION: VITAL SIGNS: Temperature 97.5 degrees, pulse rate 86, respiratory rate 19, blood pressure is 210/122, O2 saturation 99% on room air. Height 5 feet 9 inches, weight 223 pounds. GENERAL: This is a 48-year-old female. She is well nourished, well developed. She is in somewhat acute distress, lying in the ER stretcher, sitting up in the bed vomiting. HEENT: Atraumatic, normocephalic. Pupils equal, round, reactive to light. Sclerae are icteric. Mucous membranes are dry. NECK: Supple supple with no lymphadenopathy. Trachea is midline. No JVD. No thyromegaly. No bruits. CARDIOVASCULAR: Regular rate and rhythm. No murmurs, gallops, or rubs appreciated. RESPIRATORY: Lung sounds are clear with equal chest excursion. Respirations are nonlabored with no accessory muscle usage. GASTROINTESTINAL: Abdomen is soft and tender. It is nondistended with bowel sounds present x4. NEUROLOGIC: Cranial nerves II-XII are intact. The patient is awake, alert, oriented. MUSCULOSKELETAL: Full distal strength noted. No abnormalities of gait. No deformities. EXTREMITIES: No clubbing, no cyanosis, no edema. DP and PT pulses are present and palpable. SKIN: Warm, dry, and intact. No rashes or bruises. No diaphoresis. ASSESSMENT AND PLAN: 1. Hypertension emergency. We will admit this patient to the ICU unit and place her on a Cardene drip to obtain a systolic blood pressure less than 180. The patient has been given several medications for her blood pressure in the ER. None of these medications have seemed to help her blood pressure. In fact, her blood pressures seemed to increase. The patient is still vomiting despite given being give several medications for nausea and vomiting. This could be a result from her hypertension. We will try to get her blood pressure down and see if this helps her vomiting. 2. Chest pain. The patient does have chronic pain. She has not been able to take any of her pain medication. She was given Dilaudid in the ER. She is not complaining of any chest pain at this time. She does not have any EKG changes. However, she is having some hypertension emergency. We are going to start her on the Cardene drip. We will do some repeat lab work in the morning and follow up on this. 3. Nausea, vomiting, diarrhea. Patient does have extremely high blood pressure. She is also not able to take her chronic pain medication. This is likely what has been causing her to have all this nausea, vomiting, and diarrhea. We are going to get her on a good pain control schedule and get her blood pressure under control and start her on some Zofran, and hopefully, this will resolve this. 4. Coronary artery disease. The patient has had 2 stents placed in the past. We are going to see if we can control her blood pressure. The patient has not followed up with a fisher pot. We are going to order an echocardiogram. 5. Diabetes mellitus. We are going to be checking her blood sugar and providing sliding scale insulin. 6. Hypothyroidism. We are going to reorder her Synthroid. 7. Gout. The patient is on medication for this at home. We are going to restart this. 8. Gastroesophageal reflux disease. We are going to restart her home gastroesophageal reflux disease medications. We will admit this patient to the intensive care unit. We are going to start her on a Cardene drip and try to control her blood pressure and see if this helps with her nausea and vomiting. We are going to also control her pain and restart several home medications. We are going to do an echocardiogram. Repeat labs in the morning, and hopefully, all of this will resolve her nausea, vomiting, diarrhea. All other labs and treatment pending hospital course. Dictated by BRY Goldstein for Magan Vance MD cc: Magan Vance MD MTDD
--- NOTE | 2018-12-12 04:38 | EKG Report ---
Test Performed on : 12/11/2018 12:48:05 PM Test Reason : chest pain Blood Pressure : / mmHG Vent. Rate : 098 BPM Atrial Rate : 098 BPM P-R Int : 136 ms QRS Dur : 082 ms QT Int : 352 ms P-R-T Axes : 087 024 -80 degrees QTc Int : 449 ms Normal sinus rhythm. ST & T wave abnormality, consider inferior ischemia ST & T wave abnormality, consider anterolateral ischemia Abnormal ECG When compared with ECG of 04-NOV-2018 20:39, (Unconfirmed) Vent. rate has increased BY [address] now depressed in Anterior leads T wave inversion now evident in Lateral leads Unconfirmed Result
[2018-12-12 04:56] LABS: HEMOGLOBIN 11.8 g/dL (12.0-16.0); RBC 4.28 XMIL (4.2-5.4); WBC 9.35 X1000 (4.8-10.8)
[2018-12-12 04:57] LABS: HEMATOCRIT 37.6 % (37.0-47.0); MCH 27.6 PG (27-31); MCHC 31.4 g/dL (33-37); MCV 87.9 FL (81-99); RDW 15.4 % (11.5-14.5)
[2018-12-12 05:42] LABS: CALCIUM 8.9 mg/dL (8.8-10.2); CREATININE 1.6 mg/dL (0.5-0.9); POTASSIUM 4.5 mmol/L (3.5-5.1)
[2018-12-12] MEDS ORDERED: SYNTHROID PO SCH (07:00)
[2018-12-12] MEDS: CARDENE 20 MG/NS 20 MG/200 ML PIGGYBACK IV SCH (07:48)
[2018-12-12] MEDS: PRILOSEC PO SCH (08:04)
[2018-12-12] MEDS: NEURONTIN PO SCH ×3 (08:05→16:12)
[2018-12-12] MEDS: ZYLOPRIM PO SCH ×2 (08:05→20:50)
[2018-12-12] MEDS: LOPRESSOR PO SCH ×2 (08:05→20:50)
[2018-12-12] MEDS: APRESOLINE PO SCH ×3 (08:05→16:13)
[2018-12-12] MEDS: ASPIRIN EC PO SCH (08:05)
--- NOTE | 2018-12-12 08:51 | PROGRESS NOTE ---
DATE: 12/12/2018 SUBJECTIVE: The patient reports still complaining of chest pain on and off that is substernal, like a pressure, but it is definitely much better in comparing with yesterday. As per nursing staff, Cardene drip has been stopped at around 1 a.m., but has been restarted, and now her blood pressure started getting higher again. OBJECTIVE: Vital Signs: Temperature 99.8 degrees, heart rate 108, respiratory rate 12, blood pressure 166/105, O2 saturation 95% on room air. General: This is a 48-year-old female, lying in bed in no acute distress. Cardiovascular: S1, S2 heard. No murmurs, gallops, or rubs. Regular rate and rhythm. Respiratory: Clear bilaterally to auscultation. No work of breathing or using accessory muscles. Abdomen: Soft. Nontender to palpation. Bowel sounds present. No organomegaly. Extremities: No clubbing, cyanosis, or edema. Peripheral pulses present in both legs. Neurological: The patient is alert and oriented x3. Moves all 4 extremities. LABORATORY DATA: CBC is normal. BMP shows creatinine 1.6, with glucose 126. A1c 6.0. Cholesterol is 314, with HDL 73. TSH 25.46. ASSESSMENT AND PLAN: 1. Hypertensive emergency. At admission, the patient was complaining of chest pain. Last blood pressure was in the range of 240s and 230s. The patient has been admitted to the unit, and Cardene drip has been started. Now, blood pressure is between 160 and 170, and we are going to restart her home medications. Will monitor this patient closely. If blood pressures is higher than 180, will start Cardene drip. 2. Chest pain. The patient has a history of coronary artery disease. We have checked troponins 3 times, and those has been negative. Echocardiogram has been done and is pending. Cardiology has been consulted as well. 3. Intractable nausea and vomiting. The patient reports feeling better, so we are going to start a clear liquid diet, and will advance diet as tolerated. 4. Hypothyroidism. TSH is 25, so I think at this point, we are going to increase his doses of levothyroxine to 250 mcg by mouth daily. 5. Diabetes mellitus type 2. According to the patient, it is diet controlled. A1c of 6.0. This is definitely well-controlled. At this point, will place her on sliding scale insulin. 6. Gout. Will continue home medications. 7. Gastroesophageal disease. Will continue with Protonix. 8. Disposition. Will continue to monitor this patient closely because the blood pressure is not well controlled yet. I have started her on beta-ramone because of her elevated blood pressure and tachycardia. Cardene drip is running at low doses. Will continue to monitor. cc: Magan Vance MD MTDD
[2018-12-12] MEDS: LIPITOR PO SCH (08:52)
[2018-12-12] MEDS ORDERED: APRESOLINE PO SCH (09:00)
[2018-12-12] MEDS ORDERED: CATAPRES PO SCH (09:00)
[2018-12-12] MEDS: PERCOCET-10 PO PRN ×2 (14:43→20:50)
--- NOTE | 2018-12-12 15:45 | ECHO REPORT ---
ORDER DATE: 12/11/2018 INTERPRETING PHYSICIAN: Dr. Everette Swanson ECHOCARDIOGRAPHIC MEASUREMENTS: 1. Interventricular septum: 1.3 cm. 2. left ventricular posterior wall: 1.3 cm. 3. Diastolic diameter: 5.2 cm. 4. Left ventricular systolic diameter: 3.8 cm. 5. Left atrium: 3.7 cm. 6. Aorta 3.0 cm. SUMMARY OF THE 2-DIMENSIONAL IMAGIN. Aortic valve leaflets are trileaflet. 2. Pulmonic valve was normal. 3. Tricuspid valve was normal. 4. Mitral valve was normal. 5. Tricuspid valve was normal. 6. There is a mild mitral regurgitation. 7. Mild tricuspid regurgitation. 8. Peak velocity across the tricuspid valve less than 2 meters per second. 9. Peak velocity across the aortic valve is 2 meters per second. 10. Normal left ventricular cavity size. 11. Estimated ejection fraction of 60 to 65%. 12. There is mild left ventricular hypertrophy. 13. There is no pericardial effusion or obvious intracardiac mass or thrombus seen. 14. Anterior echo-free space suggestive of pericardial fat pad noted. cc: MD Magan Hernandez MD
[2018-12-12] MEDS: ZOFRAN IV PRN (17:13)
[2018-12-12] MEDS: LOVENOX SUBQ SCH (18:39)
--- NOTE | 2018-12-12 19:26 | CARDIOLOGY CONSULTATION ---
DATE: 12/12/2018 Cardiology was consulted for accelerated hypertension, chest pain. Ms. Mayer is a 48-year-old lady with history of hypertension and coronary artery disease, comes to the ER with nausea and vomiting. She also had a trigger-point surgery on 12/07/2018. She came to the emergency room, was noted to have a blood pressure of 265/122. She has been having episodes of blood pressure which fluctuated, going up to 200s when she measured her blood pressure at home. She says she has been taking her medications. She also has had intermittent episodes of chest discomfort associated with the elevated blood pressure. The patient at the time of my examination was pain free. She was started on a Cardene drip which has been discontinued, and medications have been adjusted. At the time of my examination, patient does not complain of any chest pain. She does not smoke. Does not drink. She is disabled secondary to her back pain. PAST MEDICAL HISTORY: 1. Coronary artery disease, status post stent placement 4 to 5 years back. 2. Chronic back pain. 3. Diabetes. 4. Gout. 5. Hyperlipidemias. 6. Renal insufficiency. 7. History of esophageal strictures. 8. Hypothyroidism. 9. Back surgery. 10. Carpal tunnel surgery. 11. Stent placement in 2016. 12. Esophagogastroduodenoscopy with esophageal dilatation in the past. 13. Appendectomy. 14. Hysterectomy. The patient's father is from cirrhosis. Mother is disease from cervical cancer. ALLERGIES: She is allergic to baclofen, fish-containing products, Vioxx, Toradol. HOME MEDICATIONS: Neurontin 300 mg p.o. t.i.d. Aspirin 81 mg a day. Protonix 40. Synthroid 200. Hydralazine 50 t.i.d. Clonidine 0.1 mg p.o. t.i.d. Allopurinol. Seroquel. PHYSICAL EXAMINATION: On examination, blood pressure was 160/80. First and second heart sounds were heard. There was no S3 gallop.Respiratory System: Normal air entry. There is no crepitations or rhonchi. Abdomen was soft, nontender. There was no guarding or rigidity. Bowel sounds were heard. Central nervous system: Alert and oriented. Was moving all 4 extremities. Examination of extremities revealed no pedal edema. HEENT: Atraumatic, normocephalic. Pupils were equal and reacting to light. ASSESSMENT AND PLAN: Ms Renee Mayer is a 48-year-old lady with history of hypertension, diabetes, coronary artery disease, uncontrolled hypertension, who comes with complaints of having chest pain and nausea and vomiting. Was noted to have a blood pressure of 265/122. She was started on a Cardene drip which has been discontinued, and p.o. medications have been adjusted. PLAN: 1. Hypertensive emergency. Her clonidine has been discontinued. She has been started on hydralazine and beta-blockers at 50 mg twice daily. Hydralazine has been increased to 75 mg p.o. t.i.d. I will add Hyzaar 50/12.5, to her medical regimen. In addition, get a renal duplex to rule out renal artery stenosis. 2. Her echocardiogram was done. Please see detailed echocardiogram report. 3. Hyperlipidemias. Continue with Lipitor 80 mg a day. 4. She has had coronary artery disease and stent placement in the past. As cardiac enzymes were unremarkable, I will set her up to undergo a Lexiscan Cardiolite stress test to assess for and rule out ischemia. 5. She has chronic pain and is on gabapentin. I have not made any changes. 6. Chest x-ray was unremarkable. Thank you for the consult. We will follow hospital course. cc: Everette Swanson MD
[2018-12-12] MEDS: SEROQUEL PO SCH (20:50)
[2018-12-13] MEDS: SYNTHROID PO SCH (06:15)
[2018-12-13 06:22] LABS: HEMOGLOBIN 10.8 g/dL (12.0-16.0); MCH 27.3 PG (27-31); MCV 90.9 FL (81-99); MPV 10.3 FL (7.4-10.4); RBC 3.96 XMIL (4.2-5.4); RDW 15.8 % (11.5-14.5); WBC 9.29 X1000 (4.8-10.8)
[2018-12-13 06:49] LABS: CALCIUM 8.3 mg/dL (8.8-10.2); POTASSIUM 4.5 mmol/L (3.5-5.1)
[2018-12-13] MEDS: LOPRESSOR PO SCH ×2 (08:03→21:04)
[2018-12-13] MEDS: APRESOLINE PO SCH ×3 (08:03→17:32)
[2018-12-13] MEDS ORDERED: HYZAAR 50/12.5 MG PO SCH (09:00)
[2018-12-13] MEDS ORDERED: AMINOPHYLLINE ONE (09:10)
[2018-12-13] MEDS: ZYLOPRIM PO SCH ×2 (09:34→21:05)
[2018-12-13] MEDS: ASPIRIN EC PO SCH (09:34)
[2018-12-13] MEDS: LIPITOR PO SCH (09:34)
[2018-12-13] MEDS: PRILOSEC PO SCH (09:34)
[2018-12-13] MEDS: NEURONTIN PO SCH ×3 (09:34→17:32)
--- NOTE | 2018-12-13 10:31 | PROGRESS NOTE ---
DATE: 12/12/2018 SUBJECTIVE: Patient reports no more episodes of chest pain. The patient has not been on any Cardene drip during the last 24 hours. Apparently, high readings that machine was catching once we repositioned the blood pressure cuff. Blood pressure has been in the last 12 hours 130's to 140's. OBJECTIVE: Vital Signs: Temperature 97.8 degrees, heart rate 63, respiratory rate 12, blood pressure 127/80 and O2 saturation 97% on room air. General: This is a 48-year-old female lying in bed in no acute distress. Cardiovascular: S1 and S2 heard. No murmurs, gallops, or rubs. Regular rate and rhythm. Respiratory: Clear bilaterally to auscultation. No work of breathing or using accessory muscles. Abdomen: Soft. Nontender to palpation. Bowel sounds present. No organomegaly. Extremities: No clubbing, cyanosis, or edema. Peripheral pulses present in both legs. Neurological: Patient is oriented x3. Moves all 4 extremities. LABORATORY DATA: White cell count 9.29, hemoglobin 10.8, hematocrit 36, and platelets 277,000 with creatinine 2.0, and glucose 125. ASSESSMENT AND PLAN: 1. Hypertensive emergency. Patient has been off of Cardizem drip for the last 24 hours. Patient has been started on hydralazine 75 mg p.o. three times per day plus metoprolol 50 mg p.o. b.i.d. Cardiology has seen this patient, and has added Hyzaar 50/12.5 1 tablet p.o. daily. At this point, that condition is resolved. Blood pressure is under control. 2. Coronary artery disease/chest pain. The patient is not complaining of any chest pain any more. Patient evaluated by Cardiology. They decided to order Lexiscan Cardiolite stress test to evaluate, and rule out ischemia. We will see what that exam shows. 3. Intractable nausea and vomiting. That condition is resolved. Patient was started on clear liquids, and will advance as tolerated. 4. Hypothyroidism. We have increased the dose of levothyroxine from 200 to 250 mcg p.o. daily. We will check TSH later. 5. Diabetes mellitus type 2. That is well controlled, diet controlled actually. Her hemoglobin A1c 6.0. I think we will continue with current management. 6. Gout. We will continue home medications. 7. Gastroesophageal reflux disease. We will continue Protonix. 8. Disposition. I think this patient is much more stable. I think we can transfer her to a regular room. We will continue to monitor this patient closely. We will place this patient on telemetry. cc: Magan Vance MD
[2018-12-13] MEDS: ZOFRAN IV PRN (10:57)
--- NOTE | 2018-12-13 11:14 | Diag Imaging Result Doc PS360 ---
EXAM: US DUPLEX RENAL ARTY/VEIN LMTD HISTORY: acc htn TECHNIQUE: Renal arterial Doppler ultrasound COMPARISON: None. FINDINGS: The right kidney measures 4.8 x 10.0 cm. Normal echotexture and cortical thickness. Segmental arterial pressures obtained. The right renal artery ratio 0.78. The resistive index is 0.69. The left kidney is small measuring only 5.4 x 2.6 x 2.5 cm. Increased renal echotexture with cortical thinning. Very little blood flow identified. IMPRESSION: Normal right kidney. Atrophic left kidney. Electronically signed by Sam Figueroa 12/13/2018 11:12 AM
[2018-12-13] MEDS: PERCOCET-10 PO PRN ×2 (13:16→21:04)
[2018-12-13] MEDS ORDERED: NORVASC PO SCH (14:00)
--- NOTE | 2018-12-13 14:14 | Diag Imaging Result Document ---
PROCEDURE NAME: MYOCARDIAL PERF SCAN, STR/REST - 12/13/2018 PROCEDURE PERFORMED: Lexiscan Cardiolite stress. DESCRIPTION OF PROCEDURE: Lexiscan was infused per standard protocol. Baseline electrocardiogram revealed normal sinus rhythm with nonspecific ST-T changes with T-wave inversions in the anterior and inferior leads. Stress electrocardiogram was nondiagnostic. Patient had chest discomfort during Lexiscan infusions, requiring aminophylline 125 mg given for chest pain and nausea. Cardiolite was injected. There were 15.2 mCi of Cardiolite injected for the rest phase and 42.9 mCi of Cardiolite injected for the rest phase. Gated SPECT images were obtained in standard views. Images revealed significant diaphragmatic attenuation and, in addition, chest wall attenuation. Normal left ventricular cavity size. There is a low-grade, fixed defect in the left ventricular apex with normal wall motion. This is likely to represent attenuation defect. Low probability of scar. There is no evidence of ischemia. Left ventricular ejection fraction by gated SPECT was 61%. CONCLUSIONS: 1. Patient had chest discomfort during Lexiscan infusion, nondiagnostic. 2. Nondiagnostic stress electrocardiogram given baseline ST-T changes. 3. Myocardial perfusion images revealed no evidence of ischemia. 4. There is a low-grade, fixed defect in the left ventricular apex with significant breast attenuation. This is likely to represent attenuation defect. Low probability of scar. 5. Left ventricular ejection fraction by gated SPECT was 61%. cc: Everette Swanson MD
[2018-12-13] MEDS: SEROQUEL PO SCH (21:05)
[2018-12-13] MEDS: NORVASC PO SCH (21:05)
[2018-12-13] MEDS: LOVENOX SUBQ SCH (21:05)
[2018-12-13 22:28] LABS: UR CREAT RANDOM 44.8 mg/dL (11-20)
[2018-12-13 22:31] LABS: UR PROT RANDOM 4.8 mg/dL
--- NOTE | 2018-12-13 22:36 | NEPHROLOGY CONSULTATION ---
DATE: 12/13/2018 REASON FOR ADMISSION: Nausea, vomiting, fever, chills, associated with diaphoresis . TIME SEEN: 1615 CONSULTING PHYSICIAN: Dr. Alvarez. REASON FOR CONSULT: CKD. HISTORY OF PRESENT ILLNESS: Ms. Mayer is a 48-year-old white female who presented to [facility] Emergency Department for nausea and vomiting associated with fever and chills for approximately 2 to 3 days before her admission. She stated that she had recently had a trigger point therapy surgery on 12/07/2018 had reported that she was nauseated with fever and chills, she had stated that this had not improved that she was to go to the local emergency department. This continued to persist. Pain medications and blood pressure medications had been unable to stay down. Upon admission to the emergency room, it was found her blood pressure to be 265/122. She had several medications including labetalol, hydralazine and clonidine in the emergency room, blood pressure continued to climb after these 3 medications, she was given Dilaudid in the ER. She continued with vomiting and elevated blood pressure. Subsequently she was admitted to ICU for blood pressure control and monitoring. In the ER it was also noted that her white count was elevated to 11.98 with a creatinine of 1.7. Last creatinine noted at 2.0. The patient states she has known 1 solitary kidney in the past diagnosed approximately 2 years ago in [place], [place]. She had not had any followup. She currently denies any chest pain. No increased work of breathing. No fever or chills. States that her blood pressure has been improving as long as she stays relaxed. She does have some pain to her right wrist. PAST MEDICAL HISTORY: Coronary artery disease, chronic back pain, type 2 diabetes, gout, hyperlipidemia, chronic kidney disease stage 3 baseline creatinine 1.7 to 2, known solitary kidney for greater than 2 to 3 years, history of esophageal strictures, hypothyroidism, chronic anemia, gastroesophageal reflux disease. PAST SURGICAL HISTORY: Two sections, 2 lower back surgeries, 4 carpal tunnel releases, coronary artery stent placement 2016, esophagogastroduodenoscopy with esophageal dilatation, appendectomy, hysterectomy. SOCIAL HISTORY: Patient is , she is disabled because of her back. She has 2 children with 1 son currently living in her home. She lives with her in an apartment above a garage of her in-laws. She denies any tobacco, alcohol or illicit drug use. She does attend a Pain Clinic for her back pain. FAMILY HISTORY: Father is from cirrhosis of the liver and liver cancer. Mother is from cervical cancer. CURRENT ALLERGIES: Listed as baclofen, fish containing products, Toradol and Vioxx. She has been instructed to avoid nonsteroidal anti-inflammatories. HOME MEDICATIONS: Neurontin, aspirin, Protonix, Synthroid, hydralazine, MiraLAX, allopurinol, Seroquel, clonidine, Percocet. REVIEW OF SYSTEMS: Negative for chest pain, negative for increased work of breathing, negative for fever or chills, negative for lower extremity swelling. Positive for right wrist hand pain, she is currently eating, negative for nausea, vomiting or any recent diarrhea since admission. Denies headaches. Patient's most recent vital signs at the time she was seen last temperature 98.6 degrees, blood pressure 158/97, heart rate 71, respirations 22, she is on room air, last recorded saturation is 99%, she has had 1615 in, 1150 out to void. LABS: Sodium is 142, potassium 4.5, chloride 108, CO2 20, BUN 38, creatinine 2, glucose 125, her anion gap is 14, calcium of 8.3. White count 9.29, hemoglobin 10.8, hematocrit 36, platelet count 277,000. Negative troponins on admission. TSH 25.46. Hypercholesterolemia. Triglycerides 119, cholesterol 314, LDL 217, HDL is 73, amylase 70, lipase 85, AST 16, ALT 17. Patient has had an aorta renal ultrasound with renal artery vein limited study completed today. Findings indicate the right kidney measuring 4.8 x 10, left kidney measuring 5.4 x 2.6, resistive index on the right is 0.69. The impression indicates normal right kidney with atrophic left, patient has known atrophic kidney. We have requested that Radiology evaluate the findings on this study for clarification of the findings. PHYSICAL EXAMINATION: This is a 48-year-old white female resting quietly in bed, head of the bed is elevated, she is currently eating her dinner. She denies chest pain, increased work of breathing. Skin is warm and dry. Patient has fair dentition.Neck: Supple. Trachea midline. No evidence of JVD in the upright position. Cardiovascular: She is regular rate and rhythm. No murmur or gallop appreciated. Lungs: Clear to auscultation bilateral. Equal excursion on room air. Abdomen: Soft, positive bowel sounds. Slight tenderness on palpation. Genitourinary: Not inspected. Patient has adequate urine out noted . Extremities: Have no edema. Right hand is slightly tender. Integumentary: Skin is warm and dry. No rashes or lesions. Neurological: She is alert and oriented x3. ASSESSMENT AND PLAN: 1. Acute kidney injury on chronic kidney disease, patient's baseline creatinine appears to be 1.7. Creatinine is at 2. She has had adequate urine output. US with normal right kidney. Absent left. We will reevaluate labs in the a.m. 2. Hypertensive emergency. The patient has been treated currently with amlodipine 5 mg b.i.d., nicardipine drip which is currently off, hydralazine 100 mg p.o. t.i.d., Lopressor 50 mg p.o. b.i.d., followed by the primary care. 3. Electrolytes and acid-base balance. These are acceptable. 4. Anemia. This is low but stable. 5. Elevated TSH. Patient has been started on levothyroxine 250 mcg 1 p.o. daily followed by the primary care. 6. Nausea and vomiting. This has resolved during her hospital stay. Like to thank you for allowing us to follow with this patient. Dictated by BRY Roger for Varghese Contreras MD cc: BRY Roger MD [facility]
[2018-12-14 05:52] LABS: HEMATOCRIT 38.1 % (37.0-47.0); HEMOGLOBIN 11.9 g/dL (12.0-16.0); MCH 27.5 PG (27-31); MCHC 31.2 g/dL (33-37); MPV 10.6 FL (7.4-10.4); RBC 4.33 XMIL (4.2-5.4); RDW 15.6 % (11.5-14.5); WBC 10.2 X1000 (4.8-10.8)
[2018-12-14 06:08] LABS: CALCIUM 8.6 mg/dL (8.8-10.2)
[2018-12-14 06:09] LABS: ALBUMIN 4.1 g/dL (3.5-5.0); CALCIUM 8.7 mg/dL (8.8-10.2); CREATININE 1.9 mg/dL (0.5-0.9); PHOSPHORUS 4.3 mg/dL (2.7-4.5); POTASSIUM 4.1 mmol/L (3.5-5.1)
[2018-12-14] MEDS: SYNTHROID PO SCH (06:35)
[2018-12-14] MEDS: PERCOCET-10 PO PRN ×2 (08:35→19:59)
[2018-12-14] MEDS: LOPRESSOR PO SCH ×2 (08:35→19:59)
[2018-12-14] MEDS: ASPIRIN EC PO SCH (08:35)
[2018-12-14] MEDS: NEURONTIN PO SCH ×3 (08:35→16:19)
[2018-12-14] MEDS: LIPITOR PO SCH (08:36)
[2018-12-14] MEDS: ZYLOPRIM PO SCH ×2 (08:36→19:59)
[2018-12-14] MEDS: APRESOLINE PO SCH ×3 (08:36→16:19)
[2018-12-14] MEDS: NORVASC PO SCH ×2 (08:36→19:59)
[2018-12-14] MEDS: PRILOSEC PO SCH (08:36)
--- NOTE | 2018-12-14 12:49 | PROGRESS NOTE ---
DATE: 12/14/2018 SUBJECTIVE: The patient has no major complaints except she describes kidney pain and she feels lack of energy and just very tired. Nurse reports that she dropped her saturations overnight a little bit with some apneic periods. OBJECTIVE: Vital signs: Blood pressure is 126/75, heart rate 71, respiratory rate of 20, temperature 98.4 degrees, 97% on room air. Cardiovascular: Regular rate and rhythm. Pulmonary: Bilateral breath sounds clear to auscultation. Gastrointestinal: Soft, nontender, nondistended. Bowel sounds are positive. Extremities: No clubbing or cyanosis. Lymphatics: No peripheral edema. LABORATORY DATA: Creatinine is at 1.9 which is close to baseline. BUN of 45. Sugars are pretty well controlled. Hemoglobin and hematocrit 11 and 38, white count of 10. PROBLEM LIST: 1. Hypertensive emergency, malignant hypertension. She is stable. She is off a Cardene drip. I do not think she was on Cardizem. She is on hydralazine. She is on Lopressor. She had been on Hyzaar but I do not know she is on that now; I think she is on Hyzaar right now. Right now, she is on hydralazine, metoprolol and amlodipine. May need to add minoxidil. 2. Diabetes. Appears to be well controlled. Her A1c is only 6. She seems to be doing okay from that standpoint. 3. History of coronary artery disease, chest pain. Her Lexiscan is negative. I believe low probability of ischemic changes. Her aortorenal ultrasound is really unremarkable. 4. Hypothyroidism. Her TSH was elevated and her Synthroid dose was adjusted. 5. Chronic renal failure. She is stage IIIB, or IV it looks like. She seems to be doing okay. Nephrology is following. 6. History of gout. We will continue her medications. DISPOSITION: I think she is stable. I am going to transfer her to [facility] and we will continue to monitor, work on trying to get her up and around, follow closely. cc: Hilton Bruce MD [facility]
[2018-12-14] MEDS ORDERED: APRESOLINE IV PRN (14:07)
[2018-12-14] MEDS: LOVENOX SUBQ SCH (19:59)
[2018-12-14] MEDS: SEROQUEL PO SCH (19:59)
--- NOTE | 2018-12-14 21:38 | NEPHROLOGY PROGRESS NOTE ---
DATE: 12/14/2018 TIME SEEN: 0700. SUBJECTIVE: Ms. Mayer is resting quietly in bed. States that she has had a good night. Her blood pressure is being controlled. No complaints of headache, chest pain, or increased work of breathing. OBJECTIVE: Vital Signs: Temperature 98.7 degrees, blood pressure 100/73, heart rate 90, respirations 14. She is on room air. Last recorded saturation 93%. She has had 840 in, 1550 out to void. LABS: Sodium 141, potassium 4.1, chloride 104, CO2 22, BUN 45, creatinine 1.9, glucose is 118. Anion gap is 16, calcium 8.6, phosphorus 4.3, albumin 4.1. White count 10.2, hemoglobin 11.9, hematocrit 38.1, platelet count 297,000. Her TSH is 25.46 yesterday. Her FENa score is 4.08%. Ultrasound shows atrophic left kidney with the right measuring at 10. PHYSICAL EXAMINATION: General: This is a 48-year-old white female. She is resting quietly in bed. She appears chronically ill, though in no acute distress. Skin: Warm and dry. No rashes or lesions. HEENT: Normocephalic, atraumatic. Conjunctiva is pale. She has RISA. Mucous membranes are dry. Neck: Supple. Trachea midline. No evidence of JVD. Cardiovascular: She is regular rate and rhythm. No murmur or gallop appreciated. Slightly tachycardic during our interview. Lungs: Clear to auscultation bilaterally. Equal excursion on room air. Abdomen: Soft, nontender. Positive bowel sounds. Genitourinary: Not inspected. Patient has adequate urine output, voided and documented. Extremities: No edema, no clubbing or cyanosis. Neurologic: Alert and oriented x3. ASSESSMENT AND PLAN: 1. Acute kidney injury on chronic kidney disease. The patient is back to her baseline creatinine of 1.7. It was 2 yesterday, down to 1.9 at this time. Adequate urine output is documented. No indications for intervention. 2. Electrolytes and acid-base balance. These are acceptable. 3. Anemia. This is close to target. 4. Hypertension. The patient has responded nicely to her current medications. 5. Elevated TSH. She has been started on levothyroxine, followed by Primary Care. 6. Nausea and vomiting. This has improved during hospital stay. I would like to thank you for allowing us to follow with this patient. Dictated by BRY Roger for Varghese Contreras MD Face to face encounter, data reviewed, discussed with Luly Pierce on 12/14/18. I agree with the above assessment and plan of care. cc: BRY Roger MD [facility]
[2018-12-15] MEDS: PERCOCET-10 PO PRN ×2 (01:05→10:14)
[2018-12-15] MEDS: SYNTHROID PO SCH ×2 (05:41→06:01)
[2018-12-15 06:20] LABS: BASO# 0.03 X1000 (0.0-0.2); BASO% 0.3 % (0.0-0.8); EOS# 0.05 X1000 (0.0-0.7); EOS% 0.5 % (0.0-10.0); HEMOGLOBIN 12.8 g/dL (12.0-16.0); IMM GRAN# 0.03 X1000 (0.0-0.04); IMM GRAN% 0.3 % (0.0-0.5); LYMPH# 1.96 X1000 (1.2-3.4); LYMPH% 19.6 % (20.5-51.1); MCH 27.9 PG (27-31); MCHC 31.2 g/dL (33-37); MCV 89.3 FL (81-99); MPV 10.4 FL (7.4-10.4); NEUT# 6.93 X1000 (1.4-6.5); NEUT% 69.3 % (42.2-75.2); PLT 288 X1000 (130-400); RBC 4.59 XMIL (4.2-5.4); RDW 16.1 % (11.5-14.5)
[2018-12-15 06:59] LABS: ALBUMIN 4.2 g/dL (3.5-5.0); CALCIUM 9.3 mg/dL (8.8-10.2); CREATININE 1.9 mg/dL (0.5-0.9); PHOSPHORUS 4.6 mg/dL (2.7-4.5); POTASSIUM 4.6 mmol/L (3.5-5.1)
[2018-12-15] MEDS: ZYLOPRIM PO SCH (08:34)
[2018-12-15] MEDS: LOPRESSOR PO SCH (08:34)
[2018-12-15] MEDS: NEURONTIN PO SCH ×2 (08:34→12:50)
[2018-12-15] MEDS: ASPIRIN EC PO SCH (08:34)
[2018-12-15] MEDS: LIPITOR PO SCH (08:34)
[2018-12-15] MEDS: NORVASC PO SCH (08:34)
[2018-12-15] MEDS: PRILOSEC PO SCH (08:34)
[2018-12-15] MEDS: APRESOLINE PO SCH ×2 (08:35→12:50)
[2018-12-15 11:22] VITALS: BP 152/93
--- NOTE | 2018-12-15 11:38 | NEPHROLOGY PROGRESS NOTE ---
DATE: 12/15/2018 SUBJECTIVE: Ms. Mayer is resting quietly in bed. She does have complaints of left abdominal discomfort. OBJECTIVE: Her most recent vital signs, temperature 97.5 degrees, blood pressure 130/80, heart rate 76 respirations 24. She is on room air. Last recorded saturation 98%. She has had 840, and she has had 1250 out to void. LABORATORY DATA: Sodium 141, potassium 4.6, chloride 108, CO2 20, BUN 53, her creatinine is 1.9. Her glucose is 138. Her anion gap is 13. Her calcium is 9.3, phosphorus 4.6, albumin 4.2. White count 10, hemoglobin is 12.8, hematocrit is 41, and platelet count 288,000. PHYSICAL EXAMINATION: General: This is a 48-year-old white female. She is resting quietly in bed. She appears in no acute distress. Skin: Warm and dry. HEENT: Normocephalic, atraumatic. Conjunctiva is pale and pink. She has RISA. Mucous membranes are dry. Neck: Supple. Trachea midline. No JVD. Cardiovascular: She is regular rate and rhythm. She is without murmur or gallop. Lungs: Clear to auscultation bilaterally. Equal excursion on room air. Abdomen: Soft. Nontender. Positive bowel sounds. Genitourinary: Not inspected. Patient has been voiding with adequate amount recorded. Extremities: No edema. No clubbing or cyanosis. Neurological: She is alert and oriented x3. ASSESSMENT AND PLAN: 1. Chronic kidney disease stage IIIB. Patient's creatinine has returned to her baseline, and remains stable at 1.9. BUN of 53. Adequate urine output documented. No indications for intervention. 2. Electrolytes, acid-base balance and anemia. These are all acceptable. 3. Hypertension. This has been stable with her current medications. 4. Elevated TSH. This is followed by the primary care. Under her historical baseline, she has a solitary functioning kidney on the right. We will plan for follow up in our office upon discharge with labs. 5. I would like to thank you for allowing us to follow with this patient. Dictated by BRY Roger for Varghese Contreras MD Face to face encounter, data reviewed, discussed with Luly Pierce on 12/15/18. I agree with the above assessment and plan of care. cc: BRY Roger MD [facility]
[2018-12-15] MEDS ORDERED: MORPHINE IV ONE (12:33)
--- NOTE | 2018-12-16 11:31 | DISCHARGE SUMMARY ---
ADMISSION DATE: 12/11/2018 DISCHARGE DATE: 12/15/2018 DISCHARGE DIAGNOSES: 1. Hypertensive emergency. 2. Malignant hypertension with possible compliance issues. 3. Type 2 diabetes, well controlled. 4. History of coronary artery disease. 5. Hypothyroidism. 6. Acute on chronic renal failure. 7. Gout. CONSULTATIONS: Dr. Swanson of Cardiology, Dr. Contreras of Nephrology. HISTORY AND HOSPITAL COURSE: Briefly, a 48-year-old female presenting with nausea, vomiting. Blood pressure was 265/122. She was placed on, I believe, intravenous nicardipine for blood pressure control. She had chest pain. She underwent a rule out with her cardiac enzymes being negative. Echo was performed on 12/11/2018 showing EF of 60% to 65% with mild left ventricular hypertrophy. There was no evidence of diastolic dysfunction. Cardiology was consulted. Recommended multiple workup. She had a myocardial perfusion scan on 12/13/2018, which showed an attenuation defect, but did not feel that there was any inducible ischemia. EF 61%. Aortic renal ultrasound showed normal right kidney with an atrophic left kidney. Nephrology was consulted because of the acute on chronic. Her baseline creatinine was around 1.7. Her creatinine peaked at a level of 2. With medication adjustments, her blood pressure stabilized, and on 12/15/2018, she was felt stable for discharge and follow up with her PCP at the [facility], who I believe is Alexandria Paulino. Follow up with Dr. Contreras. Will also set her up for an outpatient sleep study because she did have some sleep study. PHYSICAL EXAMINATION: On the day of discharge, lungs are clear. Blood pressure 152/93, heart rate 76. DISCHARGE MEDICATIONS: 1. Seroquel 50 at bedtime. 2. Aspirin 81 daily. 3. MiraLAX 17 b.i.d. 4. Neurontin 300 t.i.d. 5. Percocet p.r.n. 6. Allopurinol 100 b.i.d. 7. Hydralazine 100 t.i.d. (new). 8. Lopressor 50 b.i.d. (new). 9. Norvasc 10 daily (new). 10. Protonix 40 b.i.d. 11. Synthroid 250 daily, to increase the dose because her TSH analyzed here was 25. Unclear if that was related to poor compliance versus subtherapeutic dosing. DISCHARGE CONDITION: Stable. DISCHARGE INSTRUCTIONS: She will need blood pressure and renal followup at discharge within 1 to 2 weeks. May be able to add back KARLA or ARB once her blood pressure stabilizes. TIME SPENT: A 32-minute discharge. Refer to [*] and Dr. Contreras, Dr. Castrejon, Sleep Lab. cc: Hilton Bruce MD
== END 2018-12-15 14:36 | disposition home or self-care (01) | DRG 305 ==
LOC: ED 12:34 → SUATTDRO 20:30 → ICU 20:30 → 2N 12-14 22:24
PROVIDERS: ATTEND Internal Medicine

== ENCOUNTER 2019-04-25 18:17 | Inpatient (IN) ==
--- NOTE | 2019-04-25 20:00 | EKG Report ---
Test Performed on : 04/25/2019 6:42:57 PM Test Reason : tachycardia Blood Pressure : / mmHG Vent. Rate : 117 BPM Atrial Rate : 117 BPM P-R Int : 118 ms QRS Dur : 084 ms QT Int : 324 ms P-R-T Axes : 007 034 -71 degrees QTc Int : [address] & T wave abnormality, consider inferior ischemia ST & T wave abnormality, consider anterolateral ischemia Abnormal ECG When compared with ECG of 11-DEC-2018 12:48, ST less depressed in Anterior leads Unconfirmed Result
--- NOTE | 2019-04-25 20:04 | Diag Imaging Result Doc PS360 ---
EXAM: CHEST-2 VIEWS 04/25/2019 HISTORY: tachycardia TECHNIQUE: PA and lateral chest COMMENT: The inspiration is better than on 12/11/2018. There is no evidence of acute cardiac or pulmonary disease. IMPRESSION: No acute disease. Electronically signed by Thompson Mccauley 04/25/2019 8:02 PM
[2019-04-25 20:07] LABS: URINE SOURCE CLEAN CATCH
[2019-04-25 20:25] LABS: BILIRUBIN URINE NEGATIVE (NEGATIVE); BLOOD URINE NEGATIVE (NEGATIVE); COLOR YELLOW; GLUCOSE URINE NEGATIVE (NEGATIVE); KETONE URINE NEGATIVE (NEGATIVE); LEUKOCYTES URINE SMALL (NEGATIVE); NITRITE URINE NEGATIVE (NEGATIVE); PROTEIN URINE TRACE mg/dL (NEGATIVE); SP GRAVITY URINE 1.018; TURBIDITY URINE CLEAR (CLEAR); UR EPITHELIAL CELLS <10 /HPF (<10); URINE BACTERIA NEGATIVE /HPF; URINE RBC <10 /HPF (<10); URINE WBC <10 /HPF (<10); UROBILINOGEN URINE NORMAL (NORMAL)
[2019-04-25 20:25] LABS: BASO# 0.03 X1000 (0.0-0.2); BASO% 0.3 % (0.0-0.8); EOS# 0.06 X1000 (0.0-0.7); EOS% 0.5 % (0.0-10.0); HEMATOCRIT 40.6 % (37.0-47.0); HEMOGLOBIN 12.7 g/dL (12.0-16.0); LYMPH# 2.25 X1000 (1.2-3.4); LYMPH% 20.6 % (20.5-51.1); MCH 26.8 PG (27-31); MCHC 31.3 g/dL (33-37); MCV 85.8 FL (81-99); MONO# 0.73 X1000 (0.11-0.59); MONO% 6.7 % (1.7-9.3); MPV 9.9 FL (7.4-10.4); NEUT# 7.85 X1000 (1.4-6.5); NEUT% 71.9 % (42.2-75.2); PLT 389 X1000 (130-400); RBC 4.73 XMIL (4.2-5.4); RDW 14.4 % (11.5-14.5); WBC 10.92 X1000 (4.8-10.8)
[2019-04-25 20:31] LABS: INR 0.95; PROTIME 12.8 Seconds (11.0-16.0)
[2019-04-25 20:32] LABS: PTT 28.8 Seconds (22.3-41.8)
[2019-04-25 20:51] LABS: ALB/GLOB RATIO 1.2; ALBUMIN 4.5 g/dL (3.5-5.0); CALCIUM 10.8 mg/dL (8.8-10.2); CREATININE 1.7 mg/dL (0.5-0.9); POTASSIUM 4.9 mmol/L (3.5-5.1); TOTAL BILIRUBIN 0.26 mg/dL (0.20-1.00); TOTAL PROTEIN 8.4 g/dL (6.3-8.3)
[2019-04-25] MEDS ORDERED: NS 1,000 ML IV ONE (22:13)
[2019-04-25] MEDS ORDERED: ZOFRAN IV ONE (22:14)
[2019-04-25] MEDS ORDERED: APRESOLINE IV ONE ×2 (23:18→23:19)
[2019-04-25] MEDS ORDERED: TYLENOL PO ONE (23:53)
[2019-04-26] MEDS ORDERED: ZOFRAN IV ONE (00:09)
[2019-04-26] MEDS ORDERED: REGLAN IV ONE (00:18)
[2019-04-26] MEDS ORDERED: DILAUDID IV ONE (00:43)
[2019-04-26] MEDS ORDERED: NITROGLYCERIN TOP ONE (00:49)
--- NOTE | 2019-04-26 00:51 | PROVIDER DOCUMENTATION ---
This chart was entered by Darshana Haas Scribe, acting as scribe for David Hernandez MD. HPI-Chest Pain - General Chief Complaint: N/V/D Stated Complaint: CHEST PAIN/FLU SX/KIDNEY PAIN N/V/D Time Seen by Provider: 04/25/19 22:08 Source: patient Allergies/Adverse Reactions: Patient Allergies Allergy/AdvReac Type Severity Reaction Status Date / Time baclofen Allergy SHORTNESS Verified 04/26/19 00:48 OF BREATH Fish Containing Products Allergy Unknown Verified 04/26/19 00:48 ketorolac tromethamine * Allergy SHORTNESS Verified 04/26/19 00:48 [From Toradol] OF BREATH rofecoxib [From Vioxx] Allergy SHORTNESS Verified 04/26/19 00:48 OF BREATH shellfish derived Allergy SHORTNESS Verified 04/26/19 00:48 OF BREATH Home Medications: Home Medication List Medication Instructions Recorded Confirmed Last Taken Type Aspirin [Low Dose Aspirin EC] 81 mg PO DAILY 01/15/16 04/26/19 11/25/18 History Gabapentin [Neurontin] 300 mg PO TID 01/15/16 04/26/19 11/25/18 History Pantoprazole [Protonix] 40 mg PO BID@0700,1900 #60 tablet 01/19/16 04/26/19 11/24/18 Rx Allopurinol 100 mg PO BID #60 tab 10/19/18 04/26/19 11/25/18 Rx Quetiapine Fumarate 50 mg PO QHS 11/25/18 04/26/19 11/24/18 History Amlodipine [Norvasc] 10 mg PO DAILY #30 tab 12/15/18 04/26/19 Unknown Rx Hydralazine [Apresoline] 100 mg PO TID #90 tab 12/15/18 04/26/19 Unknown Rx Metoprolol [Lopressor] 50 mg PO BID #60 tab 12/15/18 04/26/19 Unknown Rx Clonidine [Catapres] 0.1 mg PO BID 04/26/19 04/26/19 Unknown History Hydrocodone/Acetaminophen [[place] 1 ea PO TID PRN 04/26/19 04/26/19 Unknown History 10-325 Tablet] Levothyroxine Sodium [Synthroid] 200 mcg PO DAILY 04/26/19 04/26/19 Unknown History - History of Present Illness-CP Nature of Presenting Problem: pt is a 48 yr old female presenting with 1 day complaint of nausea, vomiting, fatigue, weakness, headache, back pain and right flank pain. pt reports this morning onset of left chest pain radiating to left arm. pt denies shortness of breath Location: reports: other (left) Chest Pain Radiation: reports: arms (left) Quality of Pain: reports: aching, burning Severity in ED: moderate Onset/Duration: this morning Timing: still present Context/Activities at Onset: reports: light activity Modifying Factors: improves with: nothing Associated Symptoms: reports: abdominal pain, back pain, fatigue, nausea, vomi ting. denies: fever/chills, shortness of breath Nitro Today/Relief: no nitro taken today Aspirin Treatment Today: 325 mg x 1, provided at home Similar Symptoms Previously?: No Recently Seen Here or By Another Healthcare Provider: No Review of Systems - Adult - REVIEW OF SYSTEMS - ADULT Constitutional: reports: chills, fatique. denies: fever Eyes: denies: blurred vision, double vision Ears, Nose, Mouth & Throat: denies: ear pain, sinus problem, throat pain Cardiovascular: reports: chest pain. denies: palpitations, syncope Respiratory: reports: cough, shortness of breath. denies: wheezing Gastrointestinal: reports: abdominal pain, nausea, vomiting. denies: diarrhea Genitourinary: reports: flank pain. denies: dysuria, frequency Musculoskeletal: reports: back pain, muscle aches. denies: muscle weakness Integumentary: reports: no symptoms reported Neurological: reports: dizziness/vertigo, headache/migraines. denies: numbness, syncope Psychiatric: reports: no symptoms reported Endocrine: reports: no symptoms reported Hematologic/Lymphatic: reports: no symptoms reported Allergic/Immunologic: reports: no symptoms reported All Other Systems: Reviewed and Negative Past History - Adult - PAST MEDICAL HISTORY-ADULT Review of Records: reports: Old Records Reviewed, Nursing Assessment Review, Medications Reviewed, Social history reviewed & non-contributory. Major Childhood Illnesses: reports: denies history Cardiovascular: reports: CAD (has stent), CHF, HTN, hyperlipidemia, [place] Respiratory: reports: asthma Gastrointestinal: reports: GERD, other (esophagitis) Obstetrical/Gynecological: reports: uterine/ovarian cancer Genitourinary: reports: kidney disease Musculoskeletal: reports: arthritis, chronic pain, other (Gout) Neurological: reports: headaches/migraines, Seizures/Epilepsy Psychiatric: reports: anxiety, bipolar, depression, other (insomnia) Endocrine/Immune: reports: Diabetes, thyroid disorder Other Conditions: reports: denies history - PRIOR SURGERIES/PROCEDURES Surgical/Procedure History: reports: appendectomy, cardiac stent, hysterectomy, , orthopedic (extremity) (carpal tunnel), joint replacement (knee), back/neck (back ) - IMMUNIZATION STATUS Childhood Immunizations: See Nurse Assessment Flu Vaccine: See Nurse Assessment - FAMILY HISTORY Family History: reviewed, not pertinent - SOCIAL HISTORY Smoking: denies Substance Use: denies Living Situation: family Physical Exam-General - PHYSICAL EXAM-ADULT Initial Vital Signs Reviewed: Yes - CONSTITUTIONAL General Appearance: alert, no apparent distress, thin - EYES Eyes: PERRL/EOMI - HEAD, EARS, NOSE, MOUTH & THROAT HENMT: normocephalic/atraumatic, moist mucous membranes - NECK Neck: non-tender, full range of motion, supple, normal inspection - RESPIRATORY Respiratory: lungs clear, normal breath sounds, no respiratory distress, no accessory muscle use - CARDIOVASCULAR Cardiovascular: normal peripheral pulses, regular rate, rhythm, no edema - GASTROINTESTINAL (ABDOMEN) Abdominal Exam: normal bowel sounds, non tender, soft - LYMPHATIC Lymphatic: no adenopathy - MUSCULOSKELETAL Back Exam: CVA tenderness Extremity: normal range of motion, non-tender, normal inspection - SKIN Integumentary: normal color, normal turgor, warm/dry - NEUROLOGIC Neurologic: grossly normal, no motor/sensory deficits - PSYCHIATRIC Psych/Mental Status: normal mood/affect, normal thought content, normal thought process, oriented x 3 - HEART Score HEART Score: History: Moderately Suspicious HEART Score: ECG: Non-Specific Repolarization Disturbance/LBBB/PM HEART Score: Age: 45-65 Years HEART Score: Risk Factors for Atherosclerotic Disease: > or = 3 Risk Factors or History of Atherosclerotic Disease HEART Score: Troponin: < or = Normal Limit Total HEART Score:: 5 Progress - PLAN OF CARE/RESULTS Progress/Plan/Lab Results: Vital Signs - 8 hr 04/25/19 18:32 04/25/19 22:40 Temperature 98.1 F Pulse Rate 123 H 100 H Respiratory Rate 14 14 Blood Pressure 215/129 189/128 O2 Sat by Pulse Oximetry 99 96 04/25/19 18:36 Influenza Screen - Final Nasopharyngeal Laboratory Results - last 24 hr 04/25/19 04/25/19 04/25/19 19:41 19:41 19:41 WBC 10.92 H RBC 4.73 Hgb 12.7 Hct 40.6 MCV 85.8 MCH 26.8 L MCHC 31.3 L RDW Std Deviation 14.4 Plt Count 389 MPV 9.9 Neut % (Auto) 71.9 Lymph % (Auto) 20.6 [place] % (Auto) 6.7 Eos % (Auto) 0.5 Baso % (Auto) 0.3 Neut # (Auto) 7.85 H Lymph # (Auto) 2.25 [place] # (Auto) 0.73 H Eos # (Auto) 0.06 Baso # (Auto) 0.03 PT INR PTT (Actin FS) Sodium 143 Potassium 4.9 Chloride 105 Carbon Dioxide 21 L Anion Gap 17 BUN 23 H Creatinine 1.7 H Estimated GFR/1.73 m2 32 BUN/Creatinine Ratio 14 Glucose 104 Calculated Osmolality 289 Calcium 10.8 H Total Bilirubin 0.26 AST 26 ALT 31 Alkaline Phosphatase 96 Creatine Kinase 29 Troponin T High Sens [id number]-Ouipsxgamxy Pept 603 H Total Protein 8.4 H Albumin 4.5 Globulin 3.9 Albumin/Globulin Ratio 1.2 Amylase 79 Lipase 63 H Urine Source Urine Color Urine Turbidity Urine pH Ur Specific [place] Urine Protein Ur Glucose (Stick) Ur Ketones (Stick) Urine Blood Urine Nitrite Urine Bilirubin Urobilinogen Dipstick Urine Leukocytes Urine WBC (Auto) Urine RBC (Auto) U Epithel Cells (Auto) Urine Bacteria (Auto) 04/25/19 04/25/19 04/25/19 19:41 19:41 20:00 WBC RBC Hgb Hct MCV MCH MCHC RDW Std Deviation Plt Count MPV Neut % (Auto) Lymph % (Auto) [place] % (Auto) Eos % (Auto) Baso % (Auto) Neut # (Auto) Lymph # (Auto) [place] # (Auto) Eos # (Auto) Baso # (Auto) PT 12.8 INR 0.95 PTT (Actin FS) 28.8 Sodium Potassium Chloride Carbon Dioxide Anion Gap BUN Creatinine Estimated GFR/1.73 m2 BUN/Creatinine Ratio Glucose Calculated Osmolality Calcium Total Bilirubin AST ALT Alkaline Phosphatase Creatine Kinase Troponin T High Sens 9 Mbf-V-Iwrtxkpuias Pept Total Protein Albumin Globulin Albumin/Globulin Ratio Amylase Lipase Urine Source CLEAN CATCH Urine Color YELLOW Urine Turbidity CLEAR Urine pH 7.0 Ur Specific [place] 1.018 Urine Protein TRACE A Ur Glucose (Stick) NEGATIVE Ur Ketones (Stick) NEGATIVE Urine Blood NEGATIVE Urine Nitrite NEGATIVE Urine Bilirubin NEGATIVE Urobilinogen Dipstick NORMAL Urine Leukocytes SMALL A Urine WBC (Auto) <10 Urine RBC (Auto) <10 U Epithel Cells (Auto) <10 Urine Bacteria (Auto) NEGATIVE Orders Category Date Time Status Cardiac Monitoring DIRECTED Care 04/25/19 19:36 Active Oxygen Therapy- ED Nursing DIRECTED Care 04/25/19 19:36 Active Saline Loc NOW Care 04/25/19 19:36 Active CHEST-2 VIEWS [RAD] Stat Exams 04/25/19 19:36 Completed AMYLASE [CHEM] Stat Lab 04/25/19 19:41 Completed CBC WITH ELECTRONIC DIFF [HEME] Stat Lab 04/25/19 19:41 Completed CK PROFILE [SP CHEM] Stat Lab 04/25/19 19:41 Completed COMPREHENSIVE METABOLIC PANEL [CHEM] Stat Lab 04/25/19 19:41 Completed INFLUENZA SCREEN A/B Stat Lab 04/25/19 18:36 Completed LIPASE [CHEM] Stat Lab 04/25/19 19:41 Completed PRO B-NATRIURETIC PEPTIDE Stat Lab 04/25/19 19:41 Completed PROTIME WITH INR [COAG] Stat Lab 04/25/19 19:41 Completed PTT [COAG] Stat Lab 04/25/19 19:41 Completed TROPONIN T HIGH SENSITIVITY Stat Lab 04/25/19 19:41 Completed TROPONIN T HIGH SENSITIVITY Stat Lab 04/25/19 22:45 Ordered URINALYSIS W/POSS RFLX CULT [URINALYSIS] Stat Lab 04/25/19 20:00 Completed URINE CULTURE [RM] Routine Lab 04/25/19 18:00 Received 0.9% Sodium Chloride Inj [Ns] 1,000 ml Med 04/25/19 22:13 Discontinued IV 999 mls/hr Acetaminophen [Tylenol] Med 04/25/19 23:53 Discontinued 1,000 mg PO NOW ONE Hydralazine [Apresoline] Med 04/25/19 23:18 Discontinued 10 mg IV NOW ONE Hydralazine [Apresoline] Med 04/25/19 23:19 Discontinued 20 mg IV NOW ONE Hydromorphone [Dilaudid] Med 04/26/19 00:43 Discontinued 0.5 mg IV NOW ONE Metoclopramide [Reglan] Med 04/26/19 00:18 Discontinued 10 mg IV NOW ONE Nitroglycerin Med 04/26/19 00:49 Discontinued 1 inch TOP NOW ONE Ondansetron [Zofran] Med 04/25/19 22:14 Discontinued 4 mg IV NOW ONE Ondansetron [Zofran] Med 04/26/19 00:09 Discontinued 4 mg IV NOW ONE CP/SOB/Palp >45 yrs of Age Stat Oth 04/25/19 19:32 Ordered EKG [EKG] Stat Ther 04/25/19 19:36 Draft Result Diagrams: 04/25/19 19:41 04/25/19 19:41 - EKG 1 Time of EKG reading by physician:: 19:00 EKG Read and Signed by:: David Hernandez EKG Interpretation (*Must complete 3 of following elements*): Abnormal (ST and T wave abnormality-consider inferior ischemia ST and T wave abnormality- consider anterolateral ischemia) Rate: 117 Rhythm: sinus tach Reeves: normal QRS: normal ST Wave: non-specific ST changes Prior EKG Comparison: unchanged from prior (12/11/18) - XRAY 1 XRAY Study: Chest Impression: Normal (Signed EXAM: CHEST-2 VIEWS 04/25/2019 HISTORY: tachycardia TECHNIQUE: PA and lateral chest COMMENT: The inspiration is better than on 12/11/2018. There is no evidence of acute cardiac or pulmonary disease. IMPRESSION: No acute disease. Electronically signed by Thompson Mccauley 04/25/2019 8:02 PM 04/25/192001 Interpreting Physician: Thompson Mccauley MD Dictated Date/Time: 04/25/192000 cc: David Hernandez MD; None,PCP) Departure - Departure Date of Disposition Decision: 04/26/19 Time of Disposition Decision: 00:51 DIAGNOSIS: Chest pain, Renal insufficiency, HTN (hypertension), CHF (congestive heart failure) Disposition: ADMITTED INPATIENT 09 Certified Medical Emergency: Emergent Condition: Fair Referrals and Follow-Ups: None,PCP [Primary Care Provider] - - Critical Care Note This patient required my direct & personal management of CC.: No Attestation - Physician/ BERRY Attestation Patient care was provided by Advanced Practice Provider:: No The physician spent face to face time with patient:: Yes Advanced Practice Provider documentation review:: Supervising physician onsite and consulted in the evaluation and care of this patient. The physician did have a face to face encounter with the patient. This chart was documented by the indicated scribe, (Darshana Haas, Catherine) and accurately reflects the services I performed and decisions made by me, David Nino MD, as attested by the provider's signature.
[2019-04-26] MEDS ORDERED: ZOFRAN IV PRN (02:59)
[2019-04-26 03:20] LABS: CALCIUM 9.8 mg/dL (8.8-10.2); CREATININE 1.7 mg/dL (0.5-0.9); POTASSIUM 4.8 mmol/L (3.5-5.1)
[2019-04-26] MEDS: LOVENOX SUBQ SCH (03:42)
--- NOTE | 2019-04-26 05:55 | HISTORY AND PHYSICAL ---
CHIEF COMPLAINT: Chest pain. PRIMARY CARE PHYSICIAN: Elinor El HISTORY OF PRESENTING ILLNESS: This is a 48-year-old female with a history of coronary artery disease, hypertension, hypothyroidism, hyperlipidemia and gout who had presented to the emergency department with a 1-day history of having chest pain. She described it as sharp and also a heaviness sensation. She states the symptoms were worsening and subsequently she had come to the emergency department. In the ED she was evaluated. She was noted to have an elevated blood pressure. This was treated with appropriate antihypertensive agents, and due to her presenting symptoms, she will require admission for further management. At the time of my examination, patient denied any headache, fever, chills, hemoptysis, melena, weight changes, but complained of chest pain. PAST MEDICAL HISTORY: Includes coronary artery disease, hypertension, hyperlipidemia, gout, hypothyroidism. PAST SURGICAL HISTORY: Coronary stent, back surgery. ALLERGIES TO: Baclofen, fish-containing products, Vioxx, Ketorolac. CURRENT MEDICATIONS: 1. Allopurinol 100 mg p.o. b.i.d. 2. Norvasc 10 mg p.o. daily. 3. Aspirin 81 mg p.o. daily. 4. Clonidine 0.1 mg p.o. b.i.d. 5. Gabapentin 300 mg p.o. t.i.d. 6. Hydralazine 100 mg p.o. t.i.d. 7. [place] 10 one p.o. t.i.d. 8. Levothyroxine 200 mcg p.o. daily. 9. Metoprolol 50 mg p.o. b.i.d. 10. Pantoprazole 40 mg p.o. b.i.d. 11. Quetiapine 50 mg p.o. at bedtime. SOCIAL HISTORY: No history of smoking, alcohol or illicit drug use. FAMILY HISTORY: No history of coronary disease. REVIEW OF SYSTEMS: Fourteen-point review of systems is as in HPI. Other systems negative physical. PHYSICAL EXAMINATION: GENERAL: Cooperative, friendly female. She is resting more comfortably now. VITAL SIGNS: Temperature 98.1 degrees, pulse 123, respiration 14 and blood pressure initially 259/129, repeat 189/128. HEENT: Atraumatic, normocephalic. Extraocular movements intact. PERRLA. NECK: No masses. CHEST: Clear to auscultation. CARDIOVASCULAR: Regular rate and rhythm. ABDOMEN: Soft positive bowel sounds. EXTREMITIES: Trace edema. NEUROLOGIC: She is awake, alert, oriented x3. : No bladder distention. SKIN: Warm. LABORATORIES AND STUDIES: WBCs 10.92, hemoglobin 12.7, hematocrit 40.6, platelets 389,000. Sodium 143, potassium 4.9 chloride 105, CO2 is 21, BUN is 23, creatinine is 1.7, glucose is 104. Troponin is 9. Chest x-ray is negative. ASSESSMENT: This is a 48-year-old female with a history of coronary disease, hypertension, hyperlipidemia, and hypothyroidism, who had presented to emergency department with a 1-day history of having persistent chest pain. She was evaluated in the emergency department. She was noted to have markedly elevated blood pressure. This was treated and she will require admission for further management assessment. 1. Chest pain. 2. Coronary artery disease. 3. Hypertensive urgency. 4. Chronic kidney disease stage 3. PLAN: 1. We will admit patient to medical floor with telemetry. 2. We will continue with cardiac workup. Check EKG, serial cardiac enzymes. Have patient continue on aspirin. We will use sublingual nitroglycerin p.r.n. chest pain. 3. We will consult Cardiology. 4. We will monitor renal function. 5. Monitor blood pressure. Resume antihypertensive agent. 6. Put patient on DVT prophylaxis with heparin. 7. We will continue to follow and reassess, make further recommendation based on patient's clinical course. cc: Driss Thomas MD MTDD
[2019-04-26] MEDS ORDERED: SYNTHROID PO SCH (07:00)
[2019-04-26] MEDS ORDERED: PRILOSEC PO SCH (07:00)
[2019-04-26] MEDS ORDERED: LOPRESSOR PO SCH (09:00)
[2019-04-26] MEDS ORDERED: ASPIRIN EC PO SCH (09:00)
[2019-04-26] MEDS ORDERED: ASPIRIN PO SCH (09:00)
[2019-04-26] MEDS: PRILOSEC PO SCH ×2 (10:10→19:56)
[2019-04-26] MEDS: NEURONTIN PO SCH ×3 (10:11→18:40)
[2019-04-26] MEDS: NORVASC PO SCH (11:17)
[2019-04-26] MEDS: NORCO-10 PO PRN ×2 (11:17→17:37)
[2019-04-26] MEDS: APRESOLINE PO SCH ×3 (11:17→18:39)
[2019-04-26] MEDS: CATAPRES PO SCH ×2 (11:17→21:48)
[2019-04-26] MEDS: ZYLOPRIM PO SCH ×2 (11:18→21:47)
--- NOTE | 2019-04-26 11:53 | EKG Report ---
Test Performed on : 04/26/2019 11:32:17 AM Test Reason : chest pain Blood Pressure : / mmHG Vent. Rate : 117 BPM Atrial Rate : 117 BPM P-R Int : 126 ms QRS Dur : 088 ms QT Int : 336 ms P-R-T Axes : 057 026 252 degrees QTc Int : [address] & T wave abnormality, consider inferior ischemia ST & T wave abnormality, consider anterolateral ischemia Abnormal ECG When compared with ECG of 25-APR-2019 18:42, (Unconfirmed) No significant change was found Confirmed by Bg DOCKERY, Ahmet Montilla ([id number]) on 04/28/2019 7:29:05 AM
--- NOTE | 2019-04-26 13:30 | CARDIOLOGY CONSULTATION ---
DATE: 04/26/2019 CHIEF COMPLAINT ON PRESENTATION: Chest pain, nausea, vomiting and diarrhea. HISTORY OF PRESENT ILLNESS: Ms Leavitt is a 48-year-old female with a history of hypertension, coronary disease, who presented with the above complaints. She has had these symptoms for around 24 to 48 hours. She originally started with nausea, vomiting, belly pain, diarrhea over the weekend. She has not had any sick contacts. She has an occasional subjective fevers and chills but has not checked the temperature. She started having chest discomfort yesterday morning upon waking. It was described as a sharp component in her mid chest. It lasted essentially all day long with occasional worsening and occasionally getting better but there was no relief from the discomfort all day long. She had no other associated symptoms and no exacerbating factors. She reports compliance with her medications and no recent medication changes. PAST MEDICAL HISTORY: 1. Significant for coronary artery disease. She reports having a stent placed at some point in [place] in the last 5 years or so. 2. Hypertension. 3. Diabetes. 4. Hyperlipidemia. 5. Gout. 6. Hypothyroidism. 7. History of thyroid goiter which sounds like has been evaluated in the past and she may have been told that she needed it taken out but it seems like there was some issue with follow-up compliance. FAMILY HISTORY: Significant for hypertension. SOCIAL HISTORY: She denies any tobacco or alcohol. REVIEW OF SYSTEMS: A 10 system review of systems is negative except for those things mentioned in the HPI. PHYSICAL EXAMINATION: Vital signs: She is afebrile. Her heart rate is 89. Notably, she was tachycardic on presentation at 123 and had heart rates in the 100s to 120s initially. Her blood pressure is 162/92. Her presenting blood pressure was 215/129. Generally: She is in no acute distress. HEENT: Oropharynx is moist. She has poor dentition. Her eye examination shows pink conjunctivae, white sclerae. Neck: Shows marked, what appeared to be symmetrical thyromegaly. She had no tenderness. Cardiovascular: She sounds to be in a regular rate and rhythm. There are no obvious murmurs. She has no S3. She has no lower extremity edema. Chest: Sounds clear to auscultation bilaterally. She has no increased work of breathing. Abdomen: Soft, nontender, nondistended. She has no obvious organomegaly. Skin: Warm and dry throughout without any rashes. Neurological: She is moving all extremities well. She has no lateralizing deficits. PERTINENT DATA: She had a renal artery Doppler performed in November 2018 that shows an atrophic left kidney, right kidney was normal. Nuclear scan performed in November 2018 showed a normal ejection fraction of 61% with suggestion of breast attenuation and no evidence of ischemia. She had a chest x-ray this hospitalization showing no evidence of acute findings. EKG on the at 18:42 shows sinus tachycardia, nonspecific ST-T changes, no obvious Q-waves identified. Subsequent EKG on the at 11:[address]-T changes, mild sinus tachycardia, no significant Q-waves identified. Her lab data shows a white count of 10.9, hematocrit 40, platelet count of 389,000. Her sodium is 142, potassium 4.8, BUN 15, creatinine is 1.7. This appears relatively stable for her. She seems to run in the high 1's to low 2's. Her cardiac enzymes have been negative with high sensitivity troponins ranging between 9 and 12. Her free T4 is 0.84. No TSH as of yet. Her lipase is 63. ProBNP is 603. She has a trace amount of protein on her urinalysis. ASSESSMENT: Ms. Sanchez is a 48-year-old female with coronary disease who presented with chest pain and marked hypertension. PLAN: At this point, she has EKGs that do not seem clearly suggestive of ischemia, she has negative high sensitivity troponins and she has a relatively low risk stress test just 3 to 4 months ago. We will focus on treating her blood pressure. Initially I will stop the metoprolol and place her on Coreg 6.25 b.i.d. I have reduced her aspirin down to 81 mg. I am unclear why she is not on a statin considering her history of coronary disease. She has no allergy to statin therapy. She had an LDL cholesterol of 217 in November. Clearly she needs high-intensity statin therapy. Her TSH was 10.7 on recent studies. I will initiate high-intensity atorvastatin. We will order a thyroid ultrasound. Considering her hypertension, we will order a 24 hour urine for catecholamines and metanephrines. Likely we need to consider adding in either an ARB or an KARLA inhibitor considering her chronic kidney disease and history of diabetes. We will need to watch her renal function closely. cc: MD Driss España MD
[2019-04-26] MEDS ORDERED: ALDACTONE PO ONE (15:54)
[2019-04-26] MEDS: 1/2 NS 1,000 ML IV SCH (17:29)
--- NOTE | 2019-04-26 18:28 | Diag Imaging Result Doc PS360 ---
EXAM: US THYROID INDICATION: goiter TECHNIQUE: COMPARISON: None. FINDINGS: The thyroid is enlarged and extremely heterogeneous throughout, which is a nonspecific indicator of thyroid disease. There also appears to be increased vascularity associated with the thyroid. This can be associated with thyroiditis or Graves' disease. No well-defined thyroid nodule is appreciated. The right thyroid lobe measures 7.8 x 3.2 x 2.7 cm. The left thyroid lobe measures 7.7 x 2.9 x 2.8 cm. The thyroid isthmus measures 1 cm in thickness. IMPRESSION: Enlarged and extremely heterogeneous thyroid increased vascularity as detailed above. Electronically signed by [facility] 04/26/2019 6:25 PM
[2019-04-26] MEDS: COREG PO SCH (21:47)
[2019-04-26] MEDS: LIPITOR PO SCH (21:48)
[2019-04-26] MEDS: SEROQUEL PO SCH (21:48)
[2019-04-27] MEDS: LOVENOX SUBQ SCH (04:21)
[2019-04-27] MEDS: SYNTHROID PO SCH ×2 (06:47→06:51)
[2019-04-27] MEDS: PRILOSEC PO SCH ×2 (06:48→18:27)
[2019-04-27] MEDS: 1/2 NS 1,000 ML IV SCH ×3 (06:51→23:33)
[2019-04-27 07:35] LABS: BASO# 0.02 X1000 (0.0-0.2); BASO% 0.3 % (0.0-0.8); EOS# 0.09 X1000 (0.0-0.7); EOS% 1.4 % (0.0-10.0); HEMATOCRIT 33.7 % (37.0-47.0); HEMOGLOBIN 10.2 g/dL (12.0-16.0); LYMPH# 2.19 X1000 (1.2-3.4); MCH 26.4 PG (27-31); MCHC 30.3 g/dL (33-37); MCV 87.3 FL (81-99); MONO% 9.3 % (1.7-9.3); NEUT# 3.54 X1000 (1.4-6.5); PLT 304 X1000 (130-400); RBC 3.86 XMIL (4.2-5.4); RDW 14.8 % (11.5-14.5); WBC 6.44 X1000 (4.8-10.8)
[2019-04-27 07:54] LABS: ALBUMIN 3.5 g/dL (3.5-5.0); CALCIUM 8.8 mg/dL (8.8-10.2); CREATININE 2.4 mg/dL (0.5-0.9); PHOSPHORUS 5.7 mg/dL (2.7-4.5); POTASSIUM 4.6 mmol/L (3.5-5.1)
[2019-04-27 08:02] LABS: CHOLESTEROL 255 mg/dL (0-200); HDL 58 mg/dL (45-65); LDL 152 mg/dL; TRIGLYCERIDES 223 mg/dL (35-135); VLDL 45 mg/dL
[2019-04-27] MEDS: ASPIRIN PO SCH (08:32)
[2019-04-27] MEDS: CATAPRES PO SCH ×2 (08:32→20:42)
[2019-04-27] MEDS: NEURONTIN PO SCH ×3 (08:32→17:38)
[2019-04-27] MEDS: NORVASC PO SCH (08:32)
[2019-04-27] MEDS: COREG PO SCH ×2 (08:32→20:42)
[2019-04-27] MEDS: APRESOLINE PO SCH ×2 (08:33→13:07)
[2019-04-27] MEDS: ZYLOPRIM PO SCH ×2 (08:33→20:42)
[2019-04-27] MEDS: NORCO-10 PO PRN ×3 (08:38→17:38)
[2019-04-27] MEDS ORDERED: ALDACTONE PO SCH (09:00)
--- NOTE | 2019-04-27 14:45 | NEPHROLOGY CONSULTATION ---
DATE: 04/27/2019 REASON FOR ADMISSION: With complaints of chest pain with a history of coronary artery disease. REASON FOR CONSULTATION: Worsening renal function. CONSULTING PHYSICIAN: Dr. Oconnell. HISTORY OF PRESENT ILLNESS: Ms Leavitt is a 48-year-old white female whom we had recently seen in the hospital in November with a followup in our office on 01/11/2019. At that time, her baseline creatinine was 1.7 to 1.9. She is noted to have an atrophic left kidney, CKD stage 3B. The patient states that she is followed at the [facility] in [place]. She had presented to [facility] emergency department x1 day with history of chest pain. No increased lower extremity swelling. No increased work of breathing. She described this pain as sharp and heaviness. Symptoms had gotten worse prior to coming into the emergency room. She denies any fever or chills. Isolated nausea and vomiting. Otherwise, no hemoptysis, no melena. Denies any weight changes. No recent falls. States that she has had pain in her lower back she had related to her atrophic kidney. On admission in the ER, it was found that her blood pressure was elevated, which was treated. Cardiology has been consulted with workup in progress. The patient's labs on admission showed a hemoglobin of 12.7, now 10.7. BUN of 25 with a creatinine of 1.7 at her baseline. The patient had a thyroid scan indicating heterogenous changes indicating possible questionable Graves or thyroiditis. She does have a history of a goiter. Her TSH level was 10.76, free T4 of 0.84. The patient has been making adequate urine. PAST MEDICAL HISTORY: Coronary artery disease, previous stent placed in [place] in the last 5 years, chronic kidney disease stage 3B, baseline creatinine 1.7, hypertension, diabetes mellitus type 2, hyperlipidemia, gout, hypothyroidism, history of thyroid goiter, coronary artery stents and back surgery. SOCIAL HISTORY: The patient states she lives alone. Denies tobacco, alcohol or illicit drug use. The patient is being seen at the [facility] in [place]. FAMILY HISTORY: Positive for hypertension. ALLERGIES: Listed as baclofen, fish-containing products, Vioxx, and ketorolac. HOME MEDICATIONS: Allopurinol, Norvasc, low-dose aspirin, clonidine, gabapentin, hydralazine, [place], levothyroxine, metoprolol, pantoprazole, quetiapine. REVIEW OF SYSTEMS: Times 10 with pertinent positives listed above in the HPI. VITAL SIGNS: Temperature 97.8 degrees, blood pressure 99/61, heart rate 76, respirations 18. She is on room air, last recorded saturation 98%. LABORATORY DATA: Sodium is 136, potassium 4.6, chloride 102, CO2 21, BUN 35, creatinine 2.5, glucose 121, her anion gap is 13, calcium 8.8, phosphorus 5.7, albumin is 3.5. White count 6.44, hemoglobin 10.2, hematocrit 37.7 with a platelet count of 304,000. TSH as mentioned is 10.76 with a T4 of 0.84. PHYSICAL EXAMINATION: General: This is a 48-year-old white female, resting quietly in bed. She appears in no acute distress. Skin: Warm and dry. HEENT: Normocephalic, atraumatic. Conjunctiva is pale pink. She has RISA. Mucous membranes are dry. She has poor dentition. Neck: Supple. Trachea midline. No marked swelling to her neck. No tenderness present on palpation. Cardiovascular: She is regular rate and rhythm. No murmur or gallop appreciated. Lungs: Clear to auscultation bilaterally. Equal excursion. She is currently on room air. Abdomen: Large, obese, soft, nontender. Positive bowel sounds. Genitourinary: Not inspected. Patient has been voiding adequate amounts. Extremities: No edema, no clubbing or cyanosis. Neurological: She is alert and oriented x3. A good historian. ASSESSMENT AND PLAN: 1. Acute kidney injury on chronic kidney disease stage 3B. Patient's BUN and creatinine are 35 and 2.4 consecutively. Her creatinine baseline is 1.7. We will check urine electrolytes. She has a 24 hour urine that is currently in process. We will check a renal ultrasound. We will monitor her labs to avoid any nephrotoxic medications. 2. Electrolytes and acid-base balance. These are acceptable. 3. Anemia. This is close to target. 4. Chest pain. Cardiology is on board. It is noted that patient had an ejection fraction in 2019 of 61% with no indications of ischemia. On admission, the patient's EKG showed tachycardia with nonspecific ST changes. I would like to thank you for allowing us to follow with this patient. Dictated by BRY Roger for Varghese Contreras MD cc: BRY Roger MD Lloyd James, MD
--- NOTE | 2019-04-27 15:11 | PROGRESS NOTE ---
DATE: 04/27/2019 SUBJECTIVE: This morning, Ms. Mayer referred to be doing fair. No chest pain. However, she did say she had a lot of headaches early on, and she felt dizzy. Blood pressures have been remarkably on the lower end, and we had to withhold her antihypertensive. OBJECTIVE: Current Vital Signs: Blood pressure is 99/61, pulse of 76, respirations 18, temperature 97.8 degrees. General: Ms. Mayer is a 48-year-old, female. She is in bed. No distress. HEENT: Mucosa is pink and slightly dry. Anicteric. Acyanotic. Neck: Supple. No JVD. Chest: Good air entry bilaterally. I did not hear any crackles or crepitations or rhonchi. Cardiovascular: Regular rate and rhythm. GI: Abdomen is soft, nontender. Bowel sounds present. Extremities: No pedal edema. DISTRICT MANAGER IN TRAINING: The patient is awake, alert, oriented. There is no focal deficit. LABORATORY AND DIAGNOSTIC DATA: WBC is 6.44, hemoglobin is 10.2, platelet count 308,000. Chemistry is also reviewed. Creatinine has gone up to 2.4. BUN is also up to 35. EKG on admission did show some T-wave inversion in the inferolateral leads. Troponins have been trended 3 times, all negative. The patient, of note, presented with a blood pressure of 215/129. ASSESSMENT: 1. Chest pain on admission with negative troponin. Electrocardiograms show minimal alterations of T-wave inversion in the inferolateral leads. I think this could potentially be strain pattern from severe uncontrolled hypertension. 2. Hypertensive urgency on admission. The patient was started on a couple medications. Unfortunately, blood pressure dropped precipitously overnight, and the changes had to be withheld. She is currently on amlodipine. 3. Mild clinical volume depletion. The patient is on intravenous fluids. 4. Acute on chronic renal failure. Will get urine studies and ultrasound of the kidneys, and consult Nephrology to evaluate the patient. 5. Hypothyroidism with elevated TSH, consistent with inadequate supplementation. The patient's levothyroxine supplement has been uptitrated. 6. History of coronary artery disease. Noted. The patient is being followed by Cardiology. 7. Diabetes mellitus. The patient is on insulin regimen, and we will check on her A1c for tomorrow. In general, I think Ms. Mayer is doing well. Blood pressure was extremely elevated when she came in. After the changes were made during the hospital, it has actually bottomed out. She is currently just on amlodipine and hydralazine, and we might have to even make more changes to this. She was on amlodipine and hydralazine. This has been withheld. The patient is on only carvedilol for now. We will reintroduce her medications as her blood pressures get better. Cardiology is doing studies to rule out secondary hypertension. We will follow up with further recommendations from Cardiology and Nephrology. cc: MD Driss Soler MD
--- NOTE | 2019-04-27 15:18 | Diag Imaging Result Doc PS360 ---
US RENAL 2 (RETROPER) COMPLETE - 04/27/2019 INDICATION: ruma/arf TECHNIQUE: COMPARISON: 12/13/2018 FINDINGS: The left kidney is severely atrophic stable from prior. The left kidney measures about 5.9 x 3.7 cm. The right kidney is normal in size. The right kidney measures 9.5 x 4.8 x 4.5 cm. Cortex measures about 7 mm. No hydronephrosis. The urinary bladder appears normal and is filled with clear urine. IMPRESSION: No change from prior. Severely atrophic left kidney. Grossly normal right kidney. Electronically signed by Juan A Shelby 04/27/2019 3:15 PM
--- NOTE | 2019-04-27 20:30 | CARDIOLOGY PROGRESS NOTE ---
DATE: 04/27/2019 SUBJECTIVE: No issues overnight. No chest pain. PHYSICAL EXAMINATION: Vital Signs: Afebrile. Heart rate 69. Blood pressure 101/53. Again, her presenting blood pressure was 215/129. General: No acute distress. Cardiovascular: She sounds to be in a regular rate and rhythm. She has no murmurs. She has no S3. No lower extremity edema. Chest: Clear bilaterally. She has no increased work of breathing. Abdomen is soft, nontender. PERTINENT DATA: Imaging of the thyroid demonstrates an enlarged and extremely heterogenous thyroid with increased vascularity. Renal ultrasound demonstrated a severely atrophic left kidney with a grossly normal right kidney. LAB DATA: Shows a white count of 6.4, hematocrit 33, platelet count is 304. Sodium 136, potassium 4.6, BUN 35, creatinine 2.4. ASSESSMENT: Ms. Moreno Leavitt is a 48-year-old female with diabetes and coronary disease. PLAN: Her blood pressure was markedly elevated on presentation, and she reports elevations at home. She has had essential normalization to a hypotensive response to her medications, which suggests that perhaps her nausea and vomiting was causing the marked hypertension on presentation, or perhaps there is a element of noncompliance playing a role. She is currently on aspirin and high-intensity statin therapy. At this point, I would recommend that she follow up with General Surgery as an outpatient regarding her thyroid and whether that might need to be ultimately biopsied or removed. We are awaiting the results of a 24-hour urine for catecholamines and metanephrines. Nephrology is seeing the patient. I do not have any acute recommendations from a cardiovascular standpoint. I will make a referral to General Surgery to evaluate the patient regarding her enlarged thyroid. cc: MD Driss España MD
[2019-04-27] MEDS: SEROQUEL PO SCH (20:42)
[2019-04-27] MEDS: LIPITOR PO SCH (20:42)
[2019-04-28] MEDS: LOVENOX SUBQ SCH (03:58)
[2019-04-28] MEDS: SYNTHROID PO SCH ×2 (06:36)
[2019-04-28] MEDS: PRILOSEC PO SCH ×2 (06:36→17:03)
[2019-04-28 07:28] LABS: HEMATOCRIT 36.2 % (37.0-47.0); HEMOGLOBIN 11.2 g/dL (12.0-16.0); MCHC 30.9 g/dL (33-37); MCV 87.2 FL (81-99); RBC 4.15 XMIL (4.2-5.4); RDW 14.7 % (11.5-14.5); WBC 6.88 X1000 (4.8-10.8)
[2019-04-28] MEDS: NORCO-10 PO PRN (07:40)
[2019-04-28 08:07] LABS: ALBUMIN 3.7 g/dL (3.5-5.0); CALCIUM 9.1 mg/dL (8.8-10.2); CREATININE 2.3 mg/dL (0.5-0.9); PHOSPHORUS 5.3 mg/dL (2.7-4.5); POTASSIUM 4.4 mmol/L (3.5-5.1)
[2019-04-28] MEDS: NEURONTIN PO SCH ×3 (09:46→17:03)
[2019-04-28] MEDS: COREG PO SCH ×2 (09:46→20:48)
[2019-04-28] MEDS: ASPIRIN PO SCH (09:46)
[2019-04-28] MEDS: ZYLOPRIM PO SCH ×2 (09:46→20:48)
[2019-04-28] MEDS: CATAPRES PO SCH ×2 (09:46→20:48)
--- NOTE | 2019-04-28 12:51 | PROVIDER PROGRESS NOTE ---
Progress Note Subjective: she complains of a headache. No other complaints noted. Objective: temperature 97.6, pulse 77, respirations 12, blood pressure 110/62, O2 sat 100% on room air. General: middle aged white female lying in bed with distress HEENT: normocephalic, atraumatic, conjunctiva pink, pupils equal and reactive. Mucous membranes moist. Skin: warm and dry. Neck: supple, no JVD. Cardiovascular: S1S2, regular rate and rhythm. No murmur or gallop. Respiratory: clear with equal air entry anteriorly. Abdomen: soft, nontender,nondistended, Bowel sounds active. : non-inspected Extremities: 1+ pitting edema to BLE Neurological: alert and oriented to person, place, and time. Labs: WBC 6.88, hemoglobin 11.2, hematocrit 36.2, platelet count 264, sodium 137, potassium 4.4, chloride 105, carbon dioxide 20, BUN 45, creatinine 2.3, intake 1447, output 500. Impression: Chronic kidney disease stage four. Her Creatinine is stable. She denies any uremic complaints with adequate urine output. She does not meet renal replacement therapy criteria. Follow up in office. Blood pressure. Stable. Fluid volume. Euvolemic . Anemia. In target. Electrolytes an acid-base balance. Stable. Medication review. Encourage weaning of gabapentin.
[2019-04-28] MEDS ORDERED: HALL'S COUGH LOZENGE MT PRN (13:35)
[2019-04-28] MEDS: 1/2 NS 1,000 ML IV SCH (14:05)
[2019-04-28] MEDS: PERIDEX MT SCH ×2 (14:11→20:49)
--- NOTE | 2019-04-28 15:06 | PROGRESS NOTE ---
DATE: 04/28/2019 SUBJECTIVE: This patient seems to be doing a little bit better compared with yesterday. She is not complaining of chest pain. She is complaining of back pain, which is chronic, and sore throat. I will add chlorhexidine plus Congers to her treatment. Also, the thyroid medication has been increased from 200 to 225 based on the elevated TSH and low T4. BUN increased. Creatinine about the same compared with yesterday, but I have a documented urine output that seems to be low. I will wait for the final recommendations of Nephrology and Cardiology Department. Blood pressure seems to be more stable, so will continue with the same management. OBJECTIVE: Vital Signs: Temperature 98.3 degrees, pulse 82, respiratory rate 16, blood pressure 128/67, oxygen saturation 97% on room air. HEENT: Head normocephalic. No trauma. PERRLA. Throat looks a little bit erythematous, but no white plaques or signs of infection. Neck: Supple. No JVD. No masses. Central trachea. She does have an enlarged thyroid gland. Chest: Clear to auscultation. No wheezing. No rales. Cardiovascular: RRR. Abdomen: Soft, protuberant, nontender, nondistended. No hepatosplenomegaly. Extremities: No edema, no clubbing, no cyanosis. Neurological: This patient is awake and alert. She is oriented x3. No focal deficits. LABORATORY DATA: WBC 6.8, hemoglobin 11.2, hematocrit 36.2, platelets 264,000. Sodium 137, potassium 4.4, chloride 105, bicarbonate 20, BUN 45, creatinine 2.3, glucose 114, calcium 9.1. Phosphorus 5.3. Albumin 3.7. ASSESSMENT AND PLAN: 1. Chest pain on admission. Electrocardiogram showed some alteration of the T- wave inversion, mostly the inferolateral leads. New electrocardiogram about the same. Cardiology on board. 2. Hypertensive urgency on admission. Right now, the blood pressure seems to be more stable, so I will continue with the same management. Both Nephrology Department and Cardiology Department are on board. She is currently on Coreg and clonidine. 3. Mild volume depletion. She seems to be better. 4. Acute on chronic kidney failure. Pending urine lab work. Kidney ultrasound showed a severely atrophic left kidney, but no change from prior, and grossly normal right kidney. Nephrology Department is following this patient. 5. Hypothyroidism with elevated TSH. The levothyroxine has been increased from 200 to 225. We will need to recheck the thyroid hormone in 6 weeks or so to see the new level. She also has an increased thyroid gland, that likely needs to be checked and probably removed. 6. History of coronary artery disease. Noted. 7. Diabetes. Continue with the same management. Pending hemoglobin A1c. cc: MD Driss Brown MD MTDD
[2019-04-28 15:19] LABS: UR CREAT RANDOM 66.1 mg/dL (11-20)
[2019-04-28] MEDS: LIPITOR PO SCH (20:48)
[2019-04-28] MEDS: SEROQUEL PO SCH (20:48)
[2019-04-29] MEDS: NORCO-10 PO PRN ×3 (00:14→20:18)
[2019-04-29] MEDS: LOVENOX SUBQ SCH (06:48)
[2019-04-29] MEDS: SYNTHROID PO SCH ×2 (06:48)
[2019-04-29] MEDS: PRILOSEC PO SCH ×2 (06:48→18:02)
[2019-04-29 08:03] LABS: CALCIUM 9.1 mg/dL (8.8-10.2); CREATININE 1.9 mg/dL (0.5-0.9); MAGNESIUM 2.6 mg/dL (1.5-2.7); POTASSIUM 4.6 mmol/L (3.5-5.1)
[2019-04-29] MEDS: NEURONTIN PO SCH ×3 (08:45→16:37)
[2019-04-29] MEDS: CATAPRES PO SCH ×2 (08:45→20:16)
[2019-04-29] MEDS: ZYLOPRIM PO SCH ×2 (08:45→20:15)
[2019-04-29] MEDS: COREG PO SCH ×2 (08:45→20:16)
[2019-04-29] MEDS: ASPIRIN PO SCH (08:45)
[2019-04-29] MEDS: PERIDEX MT SCH ×2 (08:45→20:16)
[2019-04-29] MEDS ORDERED: TAMIFLU LIQUID PO SCH (12:30)
--- NOTE | 2019-04-29 13:51 | Diag Imaging Result Doc PS360 ---
EXAM: CHEST-PORTABLE INDICATION: coughing, chest pain TECHNIQUE: One view COMPARISON: 04/25/2019 FINDINGS: The lungs are grossly clear. There is no discrete pleural fluid collection or pneumothorax. The cardiomediastinal silhouette and central vasculature are grossly unremarkable. IMPRESSION: No evidence of acute pathology by plain radiograph. Electronically signed by Wicho [facility] 04/29/2019 1:48 PM
[2019-04-29] MEDS ORDERED: NS 1,000 ML IV SCH (14:15)
--- NOTE | 2019-04-29 15:08 | PROGRESS NOTE ---
DATE: 04/29/2019 SUBJECTIVE: The patient has been complaining of cough, sore throat and generalized weakness. We repeated an influenza test and also we repeated a throat culture to rule out strep. The influenza came back positive for influenza A even though it was negative at the beginning of the admission, I have placed this patient on Tamiflu renally dosed and we will monitor this closely. OBJECTIVE: Vital Signs: Temperature 98.3 degrees, pulse 79, respiratory rate 16, blood pressure 158/79. Oxygen saturation 100% on room air. HEENT: Head normocephalic. No trauma. PERRLA. Her throat looks a bit erythematosus, but no evidence of infection. Neck: Supple. No JVD, central trachea. She does have an enlarged thyroid gland. Chest: Clear to auscultation. No wheezing. No rales. Abdomen: Soft, nontender, nondistended. No hepatosplenomegaly. Extremities: No edema. No clubbing. No cyanosis. Neurological: She is alert and oriented x3. No focal deficits. LABORATORY: Sodium 140, potassium 4.6, chloride 109, bicarbonate 20, BUN 37, creatinine 1.9, glucose 114. Hemoglobin A1c 6, and calcium 9.1, phosphorus 4, magnesium 2.6. ASSESSMENT AND PLAN: 1. Chest pain on admission. She is complaining of generalized weakness and some discomfort with cough. EKG showed some alteration of the T-wave inversion mostly the inferolateral leads. New electrocardiogram is about the same from yesterday. Cardiology on board. 2. Hypertensive urgency on admission, blood pressure seems to be more stable. Both in a Nephrology and Cardiology Department on board. 3. Volume depletion, she seems to be better, but I will continue giving her some more fluids since we have a new diagnosis of influenza. She has been tolerating p.o. though. 4. Acute on chronic kidney failure, she is back to her baseline. Continue with IV fluids for now. Just 1 bag. 5. Hypothyroidism with elevated TSH. The levothyroxine has been increased from 200 to 225, her thyroid gland is enlarged and likely she will need to see a surgeon as an outpatient to evaluate her thyroid. 6. History of coronary artery disease noted. 7. New diagnosis of influenza A, like I mentioned before, I will continue with IV fluids and I will put this patient on Tamiflu renally dosed. 8. Diabetes. Continue with the same management. Hemoglobin A1c seems to be stable at 6. cc: MD Driss Brown MD
[2019-04-29] MEDS: TAMIFLU LIQUID PO SCH ×2 (15:14→20:17)
--- NOTE | 2019-04-29 17:35 | NEPHROLOGY PROGRESS NOTE ---
DATE: 04/29/2019 SUBJECTIVE: The patient complains of aching and feels like she is feverish. She says "I think I have the flu." OBJECTIVE: Vital Signs: Temperature 98.1 degrees, pulse 73, respiratory rate 18, blood pressure 104/50, intake 1 L, output 2.2 L. General: This is a middle-aged female, sitting up in bed. She is awake and alert. She does not appear in distress. HEENT: Normocephalic, atraumatic. RISA. Neck: Supple. Trachea midline. Cardiovascular: Regular rate and rhythm. Pulmonary: Equal excursion. No wheezes. Abdomen: Soft, positive bowel sounds. Genitourinary: Not inspected. Voiding. Extremities: 1+ lower extremity edema. Integumentary: Skin is warm and dry. Neurologic: Nonfocal. LABORATORY DATA: Sodium 140, potassium 4.0, CO2 20, creatinine 1.9 (2.3). ASSESSMENT AND PLAN: 1. Chronic kidney disease stage 4. Renal functions at her baseline. We will continue to follow her in the hospital. 2. Generalized aches and subjective fever. We will order a rapid strep and a flu screening. We will defer to primary for further treatment. 3. Electrolytes, acid-base balance. These are stable. 4. Fluid volume. She is euvolemic in negative territory. Dictated by BRY Lantigua for Varghese Contreras MD cc: MD Driss Louis MD
[2019-04-29] MEDS: LIPITOR PO SCH (20:15)
[2019-04-29] MEDS: SEROQUEL PO SCH (20:16)
[2019-04-29] MEDS ORDERED: TESSALON PO PRN (22:38)
[2019-04-30] MEDS: DUONEB (A & A) INH PRN (00:01)
[2019-04-30] MEDS: TYLENOL PO PRN ×2 (05:05→20:55)
[2019-04-30] MEDS ORDERED: LABETALOL IV ONE (05:14)
[2019-04-30] MEDS: LOVENOX SUBQ SCH ×2 (05:38→06:13)
[2019-04-30] MEDS: SYNTHROID PO SCH ×4 (05:39→06:13)
[2019-04-30] MEDS: PRILOSEC PO SCH ×3 (05:40→18:15)
[2019-04-30 08:27] LABS: CALCIUM 8.7 mg/dL (8.8-10.2); CREATININE 1.8 mg/dL (0.5-0.9); POTASSIUM 4.9 mmol/L (3.5-5.1)
--- NOTE | 2019-04-30 08:51 | NEPHROLOGY PROGRESS NOTE ---
DATE: 04/30/2019 SUBJECTIVE: Patient resting in bed. She is back to fever overnight and states she feels horrible today. OBJECTIVE: Vital Signs: Temperature 102.5 degrees, pulse 104, respiratory rate 20, blood pressure 190/103. Intake 2.4 L, output 2.3 L. General: Middle-aged female, resting in bed. She appears to feel poorly. HEENT: Normocephalic, atraumatic. PERRL. Neck: Supple. No JVD. Cardiovascular: Regular rate and rhythm. Pulmonary: Clear bilaterally. No wheezes or rales. Abdomen: Soft with positive bowel sounds. Genitourinary: Not inspected. Extremities: Trace to 1+ lower extremity edema. Integumentary: Skin is warm to touch, dry. Neurologic: Nonfocal. LABORATORY DATA: Pending. ASSESSMENT AND PLAN: 1. Chronic kidney disease IV. Her renal function was at her baseline yesterday. No changes to that treatment plan. 2. Hypertension. She is on carvedilol and Catapres. Blood pressure has been significantly elevated over the last 24 hours. I will give her some hydralazine orally today and tomorrow. We may have to adjust her overall treatment plan. 3. Influenza-positive. On appropriately dosed medication, no changes. Dictated by BRY Lantigua for Varghese Contreras MD cc: MD Driss Louis MD
[2019-04-30] MEDS: APRESOLINE PO SCH ×2 (09:00→20:06)
[2019-04-30] MEDS: ZYLOPRIM PO SCH ×2 (10:06→20:06)
[2019-04-30] MEDS: ASPIRIN PO SCH (10:06)
[2019-04-30] MEDS: COREG PO SCH ×2 (10:06→20:06)
[2019-04-30] MEDS: PERIDEX MT SCH ×2 (10:07→20:06)
[2019-04-30] MEDS: CATAPRES PO SCH ×2 (10:07→20:06)
[2019-04-30] MEDS: NEURONTIN PO SCH ×3 (10:07→18:15)
[2019-04-30] MEDS: TAMIFLU LIQUID PO SCH ×2 (10:07→20:07)
[2019-04-30] MEDS: NORCO-10 PO PRN (12:02)
--- NOTE | 2019-04-30 14:10 | PROGRESS NOTE ---
DATE: 04/30/2019 SUBJECTIVE: This morning Ms. Mayer refers to be doing well. Still has some generalized weakness. She had a fever early this morning as well. OBJECTIVE: Vital signs: Blood pressure is 139/81, pulse of 78, respirations 16, temperature is 99.3 degrees. General: Ms. Mayer is a 48-year-old female. She is in bed. She is not in any distress. Mucosa is pink and moist, anicteric and acyanotic. Neck: Supple. Chest: There is good air entry bilaterally. There is some few distant crackles in the posterior lung fulton. Cardiovascular: Regular rate and rhythm. No murmurs, no rubs, no gallops. Abdomen: Soft, nontender. Bowel sounds present. Extremities: No pedal edema. KETTLE TENDER: Patient is awake, alert, and oriented. LABORATORY DATA: Chemistry shows creatinine is 1.8. ASSESSMENT: 1. Hypertensive urgency on admission, improved. 2. Chest pain with negative troponins, presumably related to uncontrolled hypertension. 3. Hypothyroidism, levothyroxine has been uptitrated. 4. History of coronary artery disease. 5. Diabetes mellitus with presenting A1c of 6.0. 6. Acute on chronic renal failure. Creatinine is down to 1.8 this morning. 7. Influenza A positive. Patient has been started on Tamiflu. cc: MD Driss Soler MD
[2019-04-30] MEDS: SEROQUEL PO SCH (20:06)
[2019-04-30] MEDS: LIPITOR PO SCH (20:06)
[2019-05-01] MEDS: PRILOSEC PO SCH ×2 (06:01→18:55)
[2019-05-01] MEDS: LOVENOX SUBQ SCH (06:01)
[2019-05-01] MEDS: SYNTHROID PO SCH ×2 (06:01)
[2019-05-01 08:10] LABS: ALBUMIN 3.3 g/dL (3.5-5.0); CALCIUM 8.9 mg/dL (8.8-10.2); MAGNESIUM 2.1 mg/dL (1.5-2.7); POTASSIUM 4.8 mmol/L (3.5-5.1)
[2019-05-01] MEDS: TAMIFLU LIQUID PO SCH ×2 (09:22→20:07)
[2019-05-01] MEDS: ZYLOPRIM PO SCH ×2 (09:23→20:07)
[2019-05-01] MEDS: COREG PO SCH ×2 (09:23→20:07)
[2019-05-01] MEDS: CATAPRES PO SCH ×2 (09:23→20:07)
[2019-05-01] MEDS: PERIDEX MT SCH ×2 (09:23→20:07)
[2019-05-01] MEDS: ASPIRIN PO SCH (09:23)
[2019-05-01] MEDS: NEURONTIN PO SCH ×3 (09:24→18:27)
[2019-05-01] MEDS: APRESOLINE PO SCH ×2 (09:24→20:07)
[2019-05-01] MEDS: NORCO-10 PO PRN ×3 (09:33→23:23)
[2019-05-01] MEDS: DUONEB (A & A) INH PRN (10:39)
--- NOTE | 2019-05-01 11:37 | PROGRESS NOTE ---
DATE: 05/01/2019 SUBJECTIVE: This morning, Ms. Mayer refers to be doing well. She says she has been coughing her head off. She also says she did have some fever earlier today. OBJECTIVE: Vital Signs: Blood pressure is 117/58, pulse of 85, respirations 16, temperature is 97.8 degrees. General Examination: Ms. Mayer is a 48-year-old, female. She is in bed. No distress. HEENT: Mucosa is pink and moist. Anicteric. Acyanotic. Neck: Supple. No JVD. Chest: Air entry is bilaterally reduced. Some distant end expiratory wheezing bilaterally. Cardiovascular: Regular rate and rhythm. No murmurs, no rubs, no gallops. GI: Abdomen is soft, nontender. Bowel sounds present. Extremities: No pedal edema. Distal pulses are present. HOST/HOSTESS HEAD: The patient is awake, alert, and oriented. There is no focal deficit. Laboratory Data: Sodium is 142, potassium is 4.8, chloride is 109, bicarb is 22, the patient's creatinine is 2.0. Ultrasound of the neck which was done initially did show enlarged and extremely heterogeneous thyroid, increased vascularity. ASSESSMENT: 1. Hypertensive urgency on admission, improved. Patient is currently on multiple blood pressure agents and is under control. 2. Chest discomfort on presentation with negative troponin, presumably related to uncontrolled blood pressure. 3. Hypothyroidism. The patient's ultrasound does reveal enlarged and extremely heterogeneous thyroid with increased vascularity. I think patient will need a biopsy or removal. She follows up with ears, nose, and throat, so we will consult them to evaluate her while she is here in the hospital, if they would want to remove it. The patient continues to be on Synthroid. 4. History of coronary artery disease, status post stents. We will continue with the aspirin, statin, beta ramone. 5. Diabetes mellitus with presenting A1c of 6.0. We will continue with diet. 6. Acute on chronic renal failure. Creatinine is 2.0. However, this seems to be patient's baseline. An ultrasound does make mention of a left atrophic kidney. For most part, patient is a single kidney patient. We will continue to avoid any nephrotoxin. Nephrology is on board. 7. Influenza A positive. Patient is on Tamiflu, renal dose. PLAN: In general, I think Ms. Mayer is doing well. Blood pressure is now a lot better. She is on hydralazine and Coreg for blood pressure control. She is also on Tamiflu. However, she continues to be febrile and she is coughing. Unsure if she has developed any pneumonia/bronchitis. We will get a CAT scan of the lungs to have a better view of the lung anatomy with a CAT scan without contrast. We will also consult ENT tomorrow to see if they will evaluate the thyroid and take it out while she is here or they prefer that she overcomes the respiratory symptoms before any major surgery is done. cc: MD Driss Soler MD
--- NOTE | 2019-05-01 15:05 | Diag Imaging Result Doc PS360 ---
EXAM: CT THORAX W/O CONTRAST INDICATION: SOB and fever TECHNIQUE: This exam was performed using automated exposure control, adjustment of mA or kV according to patient size, and/or use of iterative reconstruction technique. COMPARISON: 01/16/2016 FINDINGS: There is minimal subsegmental atelectasis at the left lung base. The lungs are clear, otherwise. Airspace consolidation is appreciated. There is no pleural fluid collection and no pneumothorax. There is no cardiomegaly. There are coronary artery calcifications. There is no evidence of significant mediastinal or hilar lymphadenopathy. Limited views of the upper abdomen are unremarkable. There is no evidence of acute osseous abnormality. IMPRESSION: Minimal left basilar subsegmental atelectasis. No evidence of acute chest pathology, otherwise. Electronically signed by [facility] 05/01/2019 3:02 PM
[2019-05-01] MEDS: LIPITOR PO SCH (20:07)
[2019-05-01] MEDS: SEROQUEL PO SCH (20:07)
[2019-05-02] MEDS: SYNTHROID PO SCH ×4 (05:44→06:13)
[2019-05-02] MEDS: LOVENOX SUBQ SCH ×2 (05:44→06:12)
[2019-05-02] MEDS: PRILOSEC PO SCH ×3 (05:44→17:18)
[2019-05-02 08:46] LABS: HEMATOCRIT 30.6 % (37.0-47.0); HEMOGLOBIN 8.9 g/dL (12.0-16.0); MCH 25.8 PG (27-31); MCHC 29.1 g/dL (33-37); MCV 88.7 FL (81-99); MPV 11.1 FL (7.4-10.4); RBC 3.45 XMIL (4.2-5.4); RDW 14.8 % (11.5-14.5); WBC 3.08 X1000 (4.8-10.8)
[2019-05-02] MEDS: NEURONTIN PO SCH ×2 (08:49→14:45)
[2019-05-02] MEDS: CATAPRES PO SCH (08:49)
[2019-05-02] MEDS: APRESOLINE PO SCH (08:49)
[2019-05-02] MEDS: COREG PO SCH (08:49)
[2019-05-02] MEDS: TAMIFLU LIQUID PO SCH ×2 (08:49→17:18)
[2019-05-02] MEDS: ASPIRIN PO SCH (08:49)
[2019-05-02] MEDS: PERIDEX MT SCH (08:49)
[2019-05-02] MEDS: ZYLOPRIM PO SCH (08:49)
[2019-05-02 09:08] LABS: ALBUMIN 3.4 g/dL (3.5-5.0); CALCIUM 8.7 mg/dL (8.8-10.2); CREATININE 1.7 mg/dL (0.5-0.9); POTASSIUM 4.3 mmol/L (3.5-5.1)
--- NOTE | 2019-05-02 10:09 | NEPHROLOGY PROGRESS NOTE ---
DATE: 05/02/2019 TIME SEEN: 0645. SUBJECTIVE: Ms. Leavitt is resting quietly in bed. States that she feels much better. No chest pain. No increased work of breathing. States that she just aches all over. She is positive for influenza A. LABORATORY DATA: Sodium 141, potassium 4.3, chloride 108, CO2 of 21, BUN 28, creatinine 1.7, glucose 136. Her anion gap is 12. Her calcium 8.7. Phosphorus 4. Albumin 3.4. White count 3.08, hemoglobin 8.9, hematocrit 30.6, platelet count 213,000. OBJECTIVE: Vital Signs: Temperature 97.4 degrees, blood pressure 138/68, heart rate 70, respirations 20. She is on room air. Last recorded saturation 98%. She has had 900 in. She has had 500 out to void. General: This is a 48-year-old, white female, resting quietly in bed. She appears chronically ill. No acute distress. Skin: Warm and dry. HEENT: Normocephalic, atraumatic. Conjunctiva is pale pink. She has RISA. Mucous membranes are dry. Neck: Supple. Trachea midline. No evidence of JVD. Cardiovascular: Regular rate and rhythm. No gallop appreciated. Lungs: Clear to auscultation bilaterally. Equal excursion. She is on room air. Abdomen: Large, round, soft, nontender. Positive bowel sounds. Genitourinary: Not inspected. Adequate urine output documented. Extremities: Trace lower extremity edema. No clubbing or cyanosis. Integumentary: Warm and dry. Neurological: She is alert and oriented x3. ASSESSMENT AND PLAN: 1. Chronic kidney disease stage 4. The patient is at her historical baseline with a creatinine of 1.7. Adequate urine output documented. 2. Electrolytes and acid-base balance. These are acceptable. 3. Anemia. This is low, but stable. This has definitely dropped during her hospital stay, with a previous hemoglobin of 12.7, now down to 8.9. We will defer to the primary care team for monitoring and evaluation. She does not meet criteria for transfusion. 4. Chest pain. This has resolved. 5. Positive influenza A. The patient remains on isolation with droplet precaution, followed by primary care. I would like to thank you for allowing us to follow with this patient. Dictated by BRY Roger for Varghese Contreras MD Face to face encounter, data reviewed, discussed with Luly Pierce on 05/02/19. I agree with the above assessment and plan of care. cc: BRY Roger MD Lloyd James, MD [facility] CENTERIsabel
[2019-05-02 15:35] VITALS: BP 119/62
--- NOTE | 2019-05-03 09:16 | DISCHARGE SUMMARY ---
ADMISSION DATE: 04/26/2019 DISCHARGE DATE: 05/02/2019 DISCHARGE DIAGNOSES: 1. Chest pain on admission, resolved. 2. Hypertensive urgency on admission, stable. 3. Dehydration, resolved. 4. Ruirp-[id number] kidney disease, she is back to her baseline. 5. Hypothyroidism with elevated thyroid stimulating hormone, levothyroxine has been increased. 6. History of coronary artery disease. 7. Goiter. 8. New diagnosis of influenza A. 9. Diabetes. PROCEDURES PERFORMED: 1. Chest x-ray dated 04/25/2019. Impression: No acute disease. 2. Thyroid ultrasound dated 04/26/2019. Impression: enlarged and extremely heterogeneous thyroid increased vascularity. 3. Renal ultrasound dated 04/27/2019. Impression: No change from prior, severely atrophic left kidney, grossly normal right kidney. 4. Chest x-ray dated 04/29/2019. Impression: No evidence of acute pathology by plain radiograph. 5. Chest CT scan dated 05/01/2019. Impression: Minimal left basilar subsegmental atelectasis, no evidence of acute chest pathology otherwise. CONSULTATIONS: Nephrology Department, Dr. Contreras. Cardiology Department, Dr. Mando Pulliam, and pending surgery Department evaluation, Dr. Trejo, to evaluate the goiter. HOSPITAL COURSE: A 48-year-old female with a past medical history of coronary artery disease, hypertension, hypothyroidism, hyperlipidemia, and gout, presented to the emergency department with a 1-day history of chest pain, which is sharp and some heaviness sensation. She stated the symptoms were worsening and subsequently she had to come to the emergency department. In the emergency department, she was evaluated, noted to have elevated blood pressure, they treated this patient with antihypertensive agent, and she was admitted for further treatment. At the moment of the practitioner evaluation in the emergency department, she denied any headache, fever, chills, hemoptysis, melena, weight changes but complained of chest pain, she was admitted to the Medical floor with telemetry. Initially, we did a Strep antigen and also a influenza screen, but those were negative, we repeated them a few days later and she had a positive influenza A, she was feeling really bad and she started having some increase of temperature especially on 04/30/2019, but she has been more than 24 hours without any kind of fever or chills, actually laboratory seems to be stable today. She will be evaluated hopefully by either ENT or Surgery Department today because she has a goiter, and after that I believe she probably can be discharged home and they can re-evaluate this patient as an outpatient and set a surgery as an outpatient as well, or we can do the procedure here if the surgeon feels comfortable to do that, but since she is having influenza and she is still getting treatment, probably it is going to be in the near future. Cardiology Department evaluated this patient because of the chest pain also, and she seems to be more stable. We will go ahead and continue with the same treatment at home. PHYSICAL EXAMINATION: Vital Signs: Temperature 98 degrees, pulse 81, respiratory rate 16, blood pressure 118/62, oxygen saturation 94% on room air. HEENT: Head normocephalic, no trauma. PERRLA. Neck: Supple. She has a goiter. Central trachea. Chest: Clear to auscultation. No wheezing. No rales. Abdomen: Soft, nontender, nondistended. No hepatosplenomegaly. Extremities: No edema, no clubbing, no cyanosis. Neurological Examination: The patient is alert. She is oriented x3. No focal deficits. LABORATORY: WBC 3.08, hemoglobin 8.9, hematocrit 30.6, platelet 213,000. Sodium 141, potassium 4.3, chloride 108, bicarbonate 21, BUN 28, creatinine 1.7, glucose 136, calcium 8.7, albumin 3.4. DISCHARGE MEDICATIONS: Allopurinol 100 mg p.o. b.i.d., aspirin 81 mg p.o. daily, atorvastatin 40 mg p.o. at bedtime, Tessalon 100 mg p.o. t.i.d. as needed, Coreg 6.25 mg p.o. b.i.d., clonidine 0.1 mg p.o. b.i.d., gabapentin 300 mg p.o. t.i.d., hydralazine 10 mg p.o. b.i.d., [place] 10 t.i.d. as needed, Synthroid 225 mcg p.o. daily, Tamiflu 30 mg p.o. b.i.d. x3 pills, Protonix 40 mg p.o. b.i.d., and quetiapine 50 mg p.o. at bedtime. The patient will be evaluated by Surgery Department hopefully today and after that she can go home unless Surgery Department will decide to keep the patient for surgery. cc: MD Driss Brown MD
== END 2019-05-02 18:17 | disposition home or self-care (01) | DRG 305 ==
LOC: ED 18:17 → 4N 18:17 → OBSVTOIN 04-26 03:14 → SUATTDRO 04-26 03:14
PROVIDERS: ADMIT Emergency Medicine; ATTEND Internal Medicine